=== PATIENT | female | born 1955 | race Caucasian/White ===

== ENCOUNTER 2018-11-24 07:21 | Day surgery (SDC) | payer BC ==
[2018-11-24] MEDS ORDERED: Ropivacaine 0.5% 5 MG/ML 30 ML SDV INJECT ONE (07:22)
[2018-11-24] MEDS ORDERED: Lidocaine 2% 5 ML SDV INJECT ONE (07:22)
[2018-11-24] MEDS ORDERED: Scopolamine 1.5 MG Transdermal Patch TRDERM ONE (07:30)
[2018-11-24] MEDS ORDERED: Gabapentin 300 MG Cap PO ONE (07:30)
[2018-11-24] MEDS ORDERED: Acetaminophen 500 MG Tab PO ONE (07:30)
[2018-11-24] MEDS ORDERED: Sodium Chloride 0.9% 10 ML Syringe FLUSH PRN (07:30)
[2018-11-24] MEDS ORDERED: Lactated Ringers 1,000 ML IV SCH (07:30)
[2018-11-24] MEDS ORDERED: Morphine PF 10 MG/10 ML SDV IV ONE (08:53)
[2018-11-24] MEDS ORDERED: Lactated Ringers 1,000 ML IV ONE (08:53)
[2018-11-24] MEDS ORDERED: Dexamethasone 4 MG/ML 5 ML MDV IVPUSH ONE (08:53)
[2018-11-24] MEDS ORDERED: Midazolam 1 MG/ML 2 ML SDV IV ONE (08:53)
[2018-11-24] MEDS ORDERED: EPINEPHrine 1 MG/ML SDV IV ONE (08:53)
[2018-11-24] MEDS ORDERED: fentaNYL 100 MCG/2 ML SDV IV ONE (08:53)
[2018-11-24] MEDS ORDERED: Ondansetron 4 MG/2 ML SDV IVPUSH ONE (08:53)
[2018-11-24] MEDS ORDERED: HYDROmorphone 2 MG/ML SDV IV ONE (08:53)
[2018-11-24] MEDS ORDERED: Propofol 200 MG/20 ML SDV IV ONE (08:53)
[2018-11-24] MEDS ORDERED: diphenhydrAMINE 50 MG/ML SDV IVPUSH ONE (08:53)
[2018-11-24] MEDS ORDERED: Ropivacaine 49.25 ML, Ketorolac 30 MG, EPINEPHrine 0.5 MG, cloNIDine 80 MCG, Sodium Chl... INJECT SCH ×5 (09:00)
[2018-11-24] MEDS ORDERED: Tranexamic Acid 3,000 MG, Sodium Chloride 0.9% 100 ML IRR ONE ×2 (10:00)
[2018-11-24] MEDS ORDERED: Nalbuphine 10 MG/1 ML Vial IVPUSH PRN (10:07)
[2018-11-24] MEDS ORDERED: diphenhydrAMINE 50 MG/ML SDV IV PRN (10:07)
[2018-11-24] MEDS ORDERED: Ondansetron 4 MG/2 ML SDV IVPUSH PRN ×2 (10:07→10:53)
[2018-11-24] MEDS ORDERED: hydrOXYzine HCl 50 MG/ML SDV IM PRN (10:07)
[2018-11-24] MEDS ORDERED: Naloxone 0.4 MG/ML SDV IVPUSH PRN ×2 (10:07→10:53)
[2018-11-24] MEDS ORDERED: Morphine 2 MG/ML Syringe IVPUSH PRN ×2 (10:07→10:53)
[2018-11-24] MEDS ORDERED: Bisacodyl 5 MG Tab PO PRN (10:53)
[2018-11-24] MEDS ORDERED: diphenhydrAMINE 50 MG/ML SDV IVPUSH PRN (10:53)
[2018-11-24] MEDS ORDERED: Docusate Sodium 100 MG Cap PO PRN (10:53)
[2018-11-24] MEDS ORDERED: Magnesium Hydroxide 400 MG/5 ML Susp 30 ML Cup PO PRN (10:53)
[2018-11-24] MEDS ORDERED: Zolpidem 5 MG Tab PO PRN (10:53)
[2018-11-24] MEDS ORDERED: traMADol 50 MG Tab PO PRN (10:53)
[2018-11-24] MEDS ORDERED: Sennosides 8.6 MG Tab PO PRN (10:53)
--- NOTE | 2018-11-24 11:32 | OR ---
DATE OF OPERATION: 11/24/2018 SURGEON: Cuco Sy DO PREOPERATIVE DIAGNOSIS: Left knee primary osteoarthritis. POSTOPERATIVE DIAGNOSIS: Left knee primary osteoarthritis. PROCEDURE: Left knee medial compartment arthroplasty. ANESTHESIA: Spinal plus conscious sedation. FLUID: Lactated Ringer solution. ESTIMATED BLOOD LOSS: 100 mL. COMPLICATIONS: None. SPECIMEN: None. DISCHARGE DISPOSITION: Stable to PACU. INSTRUMENTATION: DePuy Sigma unicondylar medial compartment knee, size 2 femur, size 2 tibial insert, and size 2, 11 mm polyethylene fixed-bearing insert. HISTORY AND INDICATION FOR THE PROCEDURE: The patient is well known to me. 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 Preoperative imaging confirmed the above- mentioned diagnosis. Risks and benefits of the procedure explained to the patient. Informed consent was obtained. Preoperative imaging confirmed the above-mentioned diagnosis. DETAILS OF PROCEDURE: The patient was seen preoperatively by myself and the Anesthesia staff in the preoperative holding area where the operative site was marked. She was brought to the operative suite by Anesthesia staff where spinal sedation was administered plus conscious sedation. Sterile Damon catheter was placed. All extremities were found to be well padded. A tourniquet was placed on the left thigh. The right lower extremity was placed into a stirrup. The left lower extremity was placed in approximately 15 degrees of flexion with a Gelfoam and a thigh reed. The left lower extremity was then prepped and draped in a sterile manner. Time-out was called identifying the correct patient, the correct procedure, the correct site, and antibiotics had been begun within appropriate period of time. The left lower extremity was exsanguinated. Tourniquet was raised to 300 mmHg for 38 minutes and let down after cementing. An incision was made just medial to the superior aspect of the patella down to the level of the tibial tubercle. Bleeding during the case was controlled with Bovie electrocautery. A medial parapatellar arthrotomy was then made. The infrapatellar fat pad was removed. Partial synovectomy was performed on the medial side. The anterior portion of the medial meniscus was removed. The medial proximal tibia was exposed with Bovie electrocautery. I then used an extramedullary tibial guide with approximately 0 to 2 degrees posterior slope, 2 mm stylus setting. This was pinned in place. I then made my vertical cut in line with the anterior superior iliac spine and then made my horizontal cut and then removed this using an osteotome and Bovie electrocautery, which took some time because of its attachments. This was a very thick cut that was due to the severe arthritis in the posterior portion where the stylus was. I sized with an 11, which had plenty of room both in flexion and extension. I then brought the knee out in extension, used a distal femoral cutting guide and pinned it in place and made my distal femoral cut. I then marked the midline in extension and flexion with my size 2 paddle and then used my size 2 distal femoral cutting block and pinned that in position and then made my 3 distal cuts and drilled the 2 lugs. After this had been accomplished, I removed those pieces of bone which I had set to remove and then placed a tibial base plate cutting guide. This was confirmed to be in good position using a bone hook on the posterior aspect and then feeling along the medial aspect of the tibia. This was held in place with a lamina composition worker. I then used a gouge to gouge for the keel and then drilled the lug. I then copiously irrigated with saline. I used tranexamic acid and then use an intra-articular injection, but did not use the full amount due to the patient's kidney status. We then copiously irrigated with saline and then I cemented in 20 degrees of flexion with a paddle rather than using the final poly after removing as much cement as I could. We then allowed the cement to set up after letting the tourniquet down. We then removed any extra cement and extra cartilage pieces and then applied my fixed-bearing tibial polyethylene. This provided excellent stability throughout range of motion. We then copiously irrigated again with saline. I did not use Betadine in this case because the patient did have a contrast oral and IV dye allergy. I then closed my parapatellar arthrotomy using two #5 Ethibond [id number] sutures superiorly and inferiorly to the pole of the patella and then with #1 Stratafix. There was a rent in the capsule medially. I oversewed this with a Stratafix, and for this reason, I applied a wound VAC, which was a 7-day wound VAC postoperatively and not for any other reason. I then closed the subcutaneous layer with #1 Stratafix followed by skin kami followed by the wound VAC and then applied an Reggie and the patient was then allowed to awaken from spinal and conscious sedation and then taken to the PACU in stable condition. /[id number] KWAME/MODL
--- NOTE | 2018-11-24 13:26 | PCM.OPNOTE ---
- General Post-Op/Procedure Note Date of Surgery/Procedure: 11/24/18 Operative Procedure(s): l medial pka Pre Op Diagnosis: left knee primary osteoarthritiss Post-Op Diagnosis: Same Anesthesia Technique: Combo Spinal/Epidural, Moderate Sedation Primary Surgeon: Cuco Sy Anesthesia Provider: Cristal Cheng EBL in mLs: 100 Complications: None Condition: Good Free Text/Narrative:: Intake & Output 11/23/18 11/24/18 11/24/18 22:59 06:59 14:59 Output Total 125 Balance -125
[2018-11-24] MEDS: Acetaminophen/oxyCODONE 325-5 MG Tab PO PRN ×2 (14:31→20:55)
--- NOTE | 2018-11-24 14:48 | CR ---
INDICATION: Followup medial hemiarthroplasty. LEFT KNEE: Frontal and lateral views were obtained portable 11/24/18 of the left knee and revealed interval medial hemiarthroplasty with components in good position and alignment and no evidence of a complicating process. There is some residual air postoperatively in the knee joint, as expected. Skin staple are again noted overlying. IMPRESSION: Satisfactory appearance postop medial hemiarthroplasty left knee. LILLIE
--- NOTE | 2018-11-24 14:50 | US ---
INDICATION: Guidance for left adductor lower thigh nerve block. ULTRASOUND, RFA GUIDANCE: Multiple ultrasonic images were obtained in the left adductor area prior to lower thigh nerve block, 11/24/18. [facility]
--- NOTE | 2018-11-24 15:46 | PCM.SN ---
- Free Text/Narrative Note: ANESTHESIA ACUTE PAIN SERVICE Date: 11/24/2018 Time: 1100 to 1122 Preoperative Dx: Left Knee Osteoarthritis with Pain Postoperative Rx: Left Partial Knee Arthroplasty The surgeon and the patient are requesting Postoperative Pain Control via Peripheral Regional Anesthesia. Procedure: Left Adductor Canal Nerve Block with Ultrasound [U/S] Guidance. Risks and benefits discussed with the patient including chronic insertion site pain and block failure or inadequate pain control. All questions answered and a consent was obtained. Monitors: NIBP, Heart Rates, SpO2 and Nasal Oxygen at 3L/M. See the nursing notes for vitals signs. Sedation: None The patient was awake throughout the whole procedure. Her left leg was placed in a frog-leg position. A preprocedure U/S scan was done locating the left Sartorius Muscle and Femoral Artery. This was very difficult and the anatomy was hard to define. She was moving her leg and stated that her pain was at a 3-4 / 10. I prepped the insertion site area with a Chlora-Prep swab and allowed it to dry. I infiltrated the needle insertion site with 2% Lidocaine plain 3 ml's. Under direct U/S visualization with moderate difficulty, I advanced a 20 Ga. 4 In. Stimuplex Ultra 360 Insulated Echogenic Needle and placed the tip next to the left Femoral Artery and below the left Sartorius Muscle. A total of 30 ml's of .5% Naropin in divided doses with negative aspiration for blood was injected under direct U/S visualization. The patient was without complaints and tolerated this well. Documentation: Please see the images taken in the PAC System in Radiology. Thank you for using this service. CANDI Moe CRNA
[2018-11-24] MEDS: ceFAZolin 2 GM in Premix Bag 1 BAG IV SCH (17:41)
[2018-11-24] MEDS ORDERED: ceFAZolin 1 GM Vial IVPUSH SCH (18:00)
[2018-11-24] MEDS ORDERED: Magnesium Oxide 400 MG Tab PO SCH (21:00)
[2018-11-25] MEDS: ceFAZolin 2 GM in Premix Bag 1 BAG IV SCH (01:39)
[2018-11-25] MEDS: Acetaminophen/oxyCODONE 325-5 MG Tab PO PRN ×2 (03:37→09:00)
[2018-11-25] MEDS ORDERED: Levothyroxine 100 MCG Tab PO SCH (06:00)
[2018-11-25] MEDS ORDERED: Pantoprazole 40 MG Tab.CR PO SCH (06:00)
[2018-11-25] MEDS ORDERED: Losartan 100 MG Tab PO SCH (09:00)
[2018-11-25] MEDS ORDERED: Hydrochlorothiazide 25 MG Tab PO SCH (09:00)
[2018-11-25] MEDS ORDERED: Allopurinol 300 MG Tab PO SCH (09:00)
[2018-11-25] MEDS ORDERED: Aspirin 325 MG Tab.EC PO SCH (09:00)
--- NOTE | 2018-11-25 09:43 | PCM.DCSUM1 ---
Discharge Summary - Hospital Course HPI Initial Comments: Left knee primary osteoarthritis Diagnosis: Stroke: No - Discharge Data Discharge Date: 11/25/18 Discharge Disposition: Home, Self-Care 01 Condition: Good - Patient Summary/Data Operative Procedure(s) Performed: l medial pka Complications: none Consults: Consultations 11/24/18 10:53 Respiratory Care Assess and Treatment [CONS] Routine Comment: Physician Instructions: Post-op Pneumonia Prevention 11/24/18 15:00 OT Evaluation and Treatment [CONS] Routine Please Evaluate and Treat. OT Reason for Consult: Strengthening This query below is only for informational purposes and is not editable. Admission Diagnosis/Problem: Arthroplasty of knee PT Evaluation and Treatment [CONS] Routine Please Evaluate and Treat. PT Reason for Consult: Strengthening This query below is only for informational purposes and is not editable. Admission Diagnosis/Problem: Arthroplasty of knee - Patient Instructions Diet: Usual Diet as Tolerated Activity: As Tolerated Driving: Do Not Drive Showering/Bathing: May Shower Showering/Bathing, Other: may shower and then replace with clean dressing Wound/Incision Care: Keep Operative Site/Wound Site Clean and Dry, Change Dressing Daily Notify Provider of: Fever, Increased Pain, Swelling and Redness, Drainage, Nausea and/or Vomiting - Discharge Plan *PRESCRIPTION DRUG MONITORING PROGRAM REVIEWED*: Yes *COPY OF PRESCRIPTION DRUG MONITORING REPORT IN PATIENT ARVIND: No Prescriptions/Med Rec: Acetaminophen/oxyCODONE [Percocet 325-5 MG] 1 tab PO QID PRN #56 tablet PRN Reason: Pain (Moderate 4-6) traMADol [Ultram] 100 mg PO Q6H PRN #56 tablet PRN Reason: Pain (Mild 1-3) Home Medications: Home Meds Acetaminophen [Tylenol Extra Strength] 1,500 mg PO BID 11/23/18 [History] Allopurinol [Zyloprim] 300 mg PO DAILY 11/23/18 [History] Fish Oil/Kinross-3 Fatty Acids [Fish Oil 1,000 MG] 1 cap PO DAILY 11/23/18 [ History] Ibuprofen 800 mg PO BID 11/23/18 [History] Losartan/Hydrochlorothiazide [Losartan-HCTZ 100-25 MG] 1 tab PO DAILY 11/23/18 [ History] Magnesium Oxide [Magnesium] 500 mg PO BEDTIME 11/23/18 [History] Levothyroxine 400 mcg PO 0600 11/24/18 [History] Turmeric Root Extract [Turmeric] 500 mg PO DAILY 11/24/18 [History] Acetaminophen/oxyCODONE [Percocet 325-5 MG] 1 tab PO QID PRN #56 tablet [Rx] traMADol [Ultram] 100 mg PO Q6H PRN #56 tablet 11/25/18 [Rx] Patient Handouts: Knee Pain, Adult, Venous Thromboembolism Prevention Referrals: Cuco Sy DO [Physician] - - Discharge Summary/Plan Comment DC Time >30 min.: No - General Info Date of Service: 11/25/18 Functional Status: Reports: Pain Controlled, Tolerating Diet, Ambulating, Urinating - Review of Systems General: Reports: No Symptoms HEENT: Reports: No Symptoms Pulmonary: Reports: No Symptoms Cardiovascular: Reports: No Symptoms Gastrointestinal: Reports: No Symptoms Genitourinary: Reports: No Symptoms Musculoskeletal: Reports: Leg Pain, Joint Pain, Joint Swelling Skin: Reports: No Symptoms Neurological: Reports: No Symptoms Psychiatric: Reports: No Symptoms - Patient Data Vitals - Most Recent: Last Vital Signs Temp 97.9 F 11/24/18 18:45 Pulse 74 11/24/18 18:45 Resp 14 11/24/18 18:45 BP 135/79 11/25/18 09:07 Pulse Ox 94 L 11/24/18 18:45 Weight - Most Recent: 307 lb I&O - Last 24 hours: Intake & Output 11/24/18 11/25/18 11/25/18 22:59 06:59 14:59 Intake Total 240 290 Output Total 500 700 Balance -260 -410 Lab Results - Last 24 hrs: Laboratory Results - last 24 hr 11/25/18 11/25/18 Range/Units 06:40 06:40 WBC 16.1 H (4.5-12.0) X10-3/uL RBC 3.73 (3.23-5.20) x10(6)uL Hgb 12.6 (11.5-15.5) g/dL Hct 35.5 D (30.0-51.3) % MCV 95.1 (80-96) fL MCH 33.6 (27.7-33.6) pg MCHC 35.4 (32.2-35.4) g/dL RDW 13.3 (11.5-15.5) % Plt Count 232 (125-369) X10(3)uL MPV 8.9 (7.4-10.4) fL Add Manual Diff Yes Neutrophils % (Manual) 80 (46-82) % Lymphocytes % (Manual) 16 (13-37) % Monocytes % (Manual) 4 (4-12) % Sodium 142 (135-145) mmol/L Potassium 4.1 (3.5-5.3) mmol/L Chloride 103 (100-110) mmol/L Carbon Dioxide 31 (21-32) mmol/L BUN 18 D (7-18) mg/dL Creatinine 1.1 H (0.55-1.02) mg/dL Est Cr Clr Drug Dosing 43.87 mL/min Estimated GFR (MDRD) 50 L (>60) BUN/Creatinine Ratio 16.4 (9-20) Glucose 154 H (80-116) mg/dL Calcium 8.5 L (8.6-10.2) mg/dL Total Bilirubin 0.3 (0.1-1.3) mg/dL AST 16 D (5-25) IU/L ALT 36 D (12-36) U/L Alkaline Phosphatase 75 (56-112) IU/L Total Protein 6.6 (6.0-8.0) g/dL Albumin 3.2 (3.2-4.6) g/dL Globulin 3.4 g/dL Albumin/Globulin Ratio 0.9 Med Orders - Current: Current Medications Allopurinol (Zyloprim) 300 mg PO DAILY [facility] Last Admin: 11/25/18 09:08 Dose: 300 mg Aspirin (Ecotrin) 325 mg PO DAILY [facility] Last Admin: 11/25/18 09:08 Dose: 325 mg Bisacodyl (Dulcolax) 10 mg PO DAILY PRN PRN Reason: Constipation Diphenhydramine HCl (Benadryl) 25 mg IV ONETIME PRN PRN Reason: Pruritus Diphenhydramine HCl (Benadryl) 25 mg IVPUSH Q4H PRN PRN Reason: Itching Docusate Sodium (Colace) 100 mg PO BID PRN PRN Reason: Constipation Hydrochlorothiazide (Hydrochlorothiazide) 25 mg PO DAILY [facility] Last Admin: 11/25/18 09:08 Dose: 25 mg Hydroxyzine HCl (Vistaril) 50 mg IM Q4H PRN PRN Reason: Nausea/Vomiting Lactated Ringer's (Ringers, Lactated) 1,000 mls @ 125 mls/hr IV ASDIRECTED [facility] Last Admin: 11/24/18 08:31 Dose: 125 mls/hr Levothyroxine Sodium (Synthroid) 400 mcg PO DAILY@0600 [facility] Last Admin: 11/25/18 06:10 Dose: 400 mcg Losartan Potassium (Cozaar) 100 mg PO DAILY [facility] Last Admin: 11/25/18 09:07 Dose: 100 mg Magnesium Hydroxide (Milk Of Magnesia) 30 ml PO BID PRN PRN Reason: Constipation Magnesium Oxide (Magnesium Oxide) 400 mg PO BEDTIME [facility] Last Admin: 11/24/18 20:25 Dose: 400 mg Morphine Sulfate (Morphine) 2 mg IVPUSH Q1H PRN PRN Reason: Pain Morphine Sulfate (Morphine) 2 mg IVPUSH Q2H PRN PRN Reason: Breakthrough Pain Nalbuphine HCl (Nubain) 10 mg IVPUSH Q1H PRN PRN Reason: Pruritus Naloxone HCl (Narcan) 0.1 mg IVPUSH ONETIME PRN PRN Reason: Oversedation Naloxone HCl (Narcan) 0.1 mg IVPUSH ONETIME PRN PRN Reason: Oversedation Ondansetron HCl (Zofran) 4 mg IVPUSH Q6H PRN PRN Reason: Nausea/Vomiting Ondansetron HCl (Zofran) 4 mg IVPUSH Q4H PRN PRN Reason: Nausea/Vomiting Oxycodone/Acetaminophen (Percocet 325-5 Mg) 2 tab PO Q4H PRN PRN Reason: Pain (moderate 4-6) Last Admin: 11/25/18 09:00 Dose: 2 tab Pantoprazole Sodium (Protonix) 40 mg PO 0600 [facility] Last Admin: 11/25/18 06:11 Dose: 40 mg Senna (Senna) 8.6 mg PO BID PRN PRN Reason: Constipation Sodium Chloride (Saline Flush) 10 ml FLUSH ASDIRECTED PRN PRN Reason: Keep Vein Open Tramadol HCl (Ultram) 100 mg PO Q6H PRN PRN Reason: Pain (mild 1-3) Zolpidem Tartrate (Ambien) 5 mg PO BEDTIME PRN PRN Reason: Sleep Discontinued Medications Acetaminophen (Tylenol Extra Strength) 1,000 mg PO ONETIME ONE Stop: 11/24/18 07:31 Last Admin: 11/24/18 07:51 Dose: 1,000 mg Ropivacaine 49.25 ml/Ketorolac Tromethamine 30 mg/Epinephrine HCl 0.5 mg/ Clonidine HCl 80 mcg/ Sodium Chloride 48.45 ml 0 ml INJECT ASDIRECTED [facility] Last Admin: 11/24/18 10:02 Dose: 100 syringe Tranexamic Acid 3,000 mg/ (Sodium Chloride 100 ml) 0 mg IRR ONETIME ONE Stop: 11/24/18 10:01 Last Admin: 11/24/18 10:00 Dose: 3,000 irr Gabapentin (Neurontin) 300 mg PO ONETIME ONE Stop: 11/24/18 07:31 Last Admin: 11/24/18 07:52 Dose: 300 mg Cefazolin Sodium 3 gm/ Sodium (Chloride) 100 mls @ 200 mls/hr IV ONETIME ONE Stop: 11/24/18 09:29 Last Admin: 11/24/18 08:49 Dose: 200 mls/hr Cefazolin Sodium/Dextrose 2 gm (/ Premix) 50 mls @ 100 mls/hr IV Q8H [facility] Stop: 11/25/18 02:29 Last Admin: 11/25/18 01:39 Dose: 100 mls/hr Scopolamine (Transderm-Scop) 1.5 mg TRDERM ONETIME ONE Stop: 11/24/18 07:31 Last Admin: 11/24/18 07:51 Dose: 1.5 mg - Exam General: Reports: Alert, Oriented, Cooperative, No Acute Distress HEENT: Reports: Pupils Equal, Pupils Reactive, EOMI, Mucous Membr. Moist/[place] Neck: Reports: Supple, Trachea Midline Lungs: Reports: Clear to Auscultation, Normal Respiratory Effort Skin: Reports: Warm, Dry, Intact Wound/Incisions: Reports: Healing Well, Dressing Dry and Intact, Drainage Neurological: Reports: No New Focal Deficit Psy/Mental Status: Reports: Alert, Normal Affect, Normal Mood Physical Findings Comments:: excellent ROM. Ambulated >500'. Replaced cannister due to drainage. Send extra cannister home Discharge Operative/Procedures - Procedures Performed Operations: l medial pka
== END 2018-11-25 10:15 | disposition home or self-care (01) ==
LOC: FB.SDS 07:21 → FB.MS 11:45 → FB.SDS 11-25 10:15
PROVIDERS: ATTEND Orthopaedic Surgery
DX: M17.0 Bilateral primary osteoarthritis of knee (principal); I10 Essential (primary) hypertension; J45.909 Unspecified asthma, uncomplicated; E03.9 Hypothyroidism, unspecified; M10.9 Gout, unspecified; G89.18 Other acute postprocedural pain; E66.9 Obesity, unspecified; Z68.43 Body mass index [BMI] 50.0-59.9, adult; Z90.5 Acquired absence of kidney; Z91.048 Other nonmedicinal substance allergy status; Z79.82 Long term (current) use of aspirin; Z79.899 Other long term (current) drug therapy; Z91.040 Latex allergy status
CPT/HCPCS: 27446; 36415; 51702; 64447; 73560; 80053; 85025; 86850; 86900; 86901; 94150; 97161; 97165; A9270; J0171; J0690; J0735; J1100; J1170; J1200; J1885; J2001; J2250; J2270; J2405; J2704; J2795; J3010; J3490; J7030; J7050; J7120; C1776

== ENCOUNTER 2019-01-09 07:22 | Inpatient (IN) | payer BC ==
[~2019-01-09 07:22] MED LIST: Acetaminophen 500 MG Tab PO ONE; Gabapentin 300 MG Cap PO ONE; Lactated Ringers 1,000 ML IV SCH; Ropivacaine 49.25 ML, Ketorolac 30 MG, EPINEPHrine 0.5 MG, cloNIDine 80 MCG, Sodium Chl... INJECT SCH; Scopolamine 1.5 MG Transdermal Patch TOP ONE; Sodium Chloride 0.9% 10 ML Syringe FLUSH PRN; Tranexamic Acid 3,000 MG, Sodium Chloride 0.9% 100 ML IRR SCH
[2019-01-09] MEDS: Sodium Chloride 0.9% 10 ML Syringe FLUSH PRN (08:07)
[2019-01-09] MEDS ORDERED: Ropivacaine 49.25 ML, EPINEPHrine 0.5 MG, cloNIDine 80 MCG, Sodium Chloride 0.9% 49.45 ML INJECT SCH ×4 (09:00)
[2019-01-09] MEDS ORDERED: Tranexamic Acid 3,000 MG, Sodium Chloride 0.9% 100 ML IRR SCH ×2 (09:00)
[2019-01-09] MEDS ORDERED: Ropivacaine 49.25 ML, Ketorolac 30 MG, EPINEPHrine 0.5 MG, cloNIDine 80 MCG, Sodium Chl... INJECT SCH ×5 (09:00)
[2019-01-09] MEDS ORDERED: Rocuronium 50 MG/5 ML Vial IV ONE (11:00)
[2019-01-09] MEDS ORDERED: Midazolam 1 MG/ML 2 ML SDV IV ONE (11:00)
[2019-01-09] MEDS ORDERED: Lactated Ringers 1,000 ML IV ONE (11:00)
[2019-01-09] MEDS ORDERED: Tetracaine 1% 10 MG/ML 2 ML SDV INJECT ONE (11:00)
[2019-01-09] MEDS ORDERED: Dexamethasone 4 MG/ML 5 ML MDV IVPUSH ONE (11:00)
[2019-01-09] MEDS ORDERED: Succinylcholine 200 MG/10 ML MDV IV ONE (11:00)
[2019-01-09] MEDS ORDERED: Morphine PF 10 MG/10 ML SDV IV ONE (11:00)
[2019-01-09] MEDS ORDERED: Albuterol 8 GM Inhaler INH ONE (11:00)
[2019-01-09] MEDS ORDERED: Ondansetron 4 MG/2 ML SDV IVPUSH ONE (11:00)
[2019-01-09] MEDS ORDERED: Labetalol 100 MG/20 ML MDV IV ONE (11:00)
[2019-01-09] MEDS ORDERED: Lidocaine 2% 100 MG/5 ML Syringe IVPUSH ONE (11:00)
[2019-01-09] MEDS ORDERED: diphenhydrAMINE 50 MG/ML SDV IVPUSH ONE (11:00)
[2019-01-09] MEDS ORDERED: Propofol 200 MG/20 ML SDV IV ONE (11:00)
[2019-01-09] MEDS ORDERED: fentaNYL 100 MCG/2 ML SDV IV ONE (11:00)
[2019-01-09] MEDS ORDERED: Vancomycin 1 GM SDV ONE (11:36)
[2019-01-09] MEDS ORDERED: Nalbuphine 10 MG/1 ML Vial IVPUSH PRN (13:33)
[2019-01-09] MEDS ORDERED: Naloxone 0.4 MG/ML SDV IVPUSH PRN ×2 (13:33→15:31)
[2019-01-09] MEDS ORDERED: diphenhydrAMINE 50 MG/ML SDV IV PRN (13:33)
[2019-01-09] MEDS ORDERED: Ondansetron 4 MG/2 ML SDV IVPUSH PRN ×2 (13:33→15:31)
[2019-01-09] MEDS ORDERED: Morphine 2 MG/ML Syringe IVPUSH PRN ×2 (13:33→15:31)
--- NOTE | 2019-01-09 14:05 | CR ---
INDICATION: Javier placement. LEFT KNEE: Frontal and lateral views of the left knee were obtained 01/09/19 and compared with 01/03/19, revealing interval removal of the medial hemiarthroplasty and placement of an intramedullary javier in the proximal metaphysis and proximal shaft of the tibia. LILLIE
[2019-01-09] MEDS ORDERED: Lidocaine 1% PF 2 ML SDV INJECT ONE (15:30)
[2019-01-09] MEDS ORDERED: Ropivacaine 0.5% 5 MG/ML 20 ML SDV INJECT ONE (15:30)
[2019-01-09] MEDS ORDERED: Docusate Sodium 100 MG Cap PO PRN (15:31)
[2019-01-09] MEDS ORDERED: Sennosides 8.6 MG Tab PO PRN (15:31)
[2019-01-09] MEDS ORDERED: Sodium Chloride 0.9% 10 ML Syringe FLUSH PRN (15:31)
[2019-01-09] MEDS ORDERED: Zolpidem 5 MG Tab PO PRN (15:31)
[2019-01-09] MEDS ORDERED: Magnesium Hydroxide 400 MG/5 ML Susp 30 ML Cup PO PRN (15:31)
[2019-01-09] MEDS ORDERED: Acetaminophen/oxyCODONE 325-5 MG Tab PO PRN (15:31)
[2019-01-09] MEDS ORDERED: diphenhydrAMINE 50 MG/ML SDV IVPUSH PRN (15:31)
[2019-01-09] MEDS ORDERED: Bisacodyl 5 MG Tab PO PRN (15:31)
--- NOTE | 2019-01-09 16:01 | OR ---
DATE OF OPERATION: 01/09/2019 SURGEON: Cuco Sy DO PREOPERATIVE DIAGNOSIS: Left knee medial arthroplasty periprosthetic fracture. POSTOPERATIVE DIAGNOSIS: Left knee medial arthroplasty periprosthetic fracture. PROCEDURE: Left knee revision total knee arthroplasty. RECORDS ADMINISTRATOR: Haily Cannon NP. Nurse practitioner, Haily Cannon NP, played an essential role in assisting in this case, helping to position the patient, retract structures as needed, as well as suturing and cutting sutures as indicated. Her presence improved patient's safety and decreased operative time. ANESTHESIA: Spinal and then general. FLUIDS: Lactated Ringer's solution. ESTIMATED BLOOD LOSS: 150 mL. COMPLICATIONS: None. SPECIMEN: None. DISCHARGE DISPOSITION: Stable to PACU. INSTRUMENTATION: Argelia rotating hinged revision arthroplasty system. HISTORY AND INDICATIONS FOR THE PROCEDURE: The patient is well known to me. Approximately 6 weeks ago, we performed a medial compartment arthroplasty on her left knee. She was having trouble. We did radiographs which confirmed the above-mentioned diagnosis. Risks and benefits of the procedure were explained to the patient and informed consent was obtained. DETAILS OF PROCEDURE: The patient was seen preoperatively by myself with the anesthesia staff in the preoperative holding area where the operative site was marked. She was brought to the operative suite, where spinal sedation was administered. This was later converted to general because of the length of the procedure. All extremities found to be well padded. A well-padded tourniquet was placed on the left thigh. The sterile Damon catheter was placed. The left lower extremity was then prepped and draped in a sterile manner. Time-out was called identifying the correct patient, correct procedure, the correct site, and the antibiotics had been put in appropriate period of time. The left lower extremity was then exsanguinated. Tourniquet was raised to 300 mmHg for 179 minutes and let down during cementing. I went through the former incision and then went more medially and extended both proximally and distally due to the revision pertaining to the procedure as well as the patient's body habitus. There was significant scar formation. A parapatellar arthrotomy was then made medially through the previous arthrotomy. The bleeding during the case was controlled with Bovie electrocautery as well as an Aquamantys 5.0 unit. Full synovectomy was performed. It was very difficult to lateralize the patella and done with great difficulty. The patella was then freehand cut with perpendicular cuts of the saw blade. A 31 was measured and three holes were made. I did not place the trial at that point in time. After that had been performed, we used the reciprocating saw and removed the medial distal femoral component and then removed the tibial base plate with the lateral anterior portion of the plateau where the fracture site was. We then reamed the distal femur 1 cm anterior to the notch and then subsequently reamed from an 8 to an 18 reamer to 80 mm. We then applied our distal cutting guide and made a 10 mm distal cut. We then focused on the tibia. I placed a C-cone upside-down defined generally where the best fit would be and determined the center point for the starting reamer. I then drilled down this and then used subsequent reamers from 8 to 15. I wanted to get to a 150 mm, but this was not possible. I was barely able to get to 80. I then placed my base plate with stem and then the cutting guide and then made a 4 mm cut. After pinning this in place, I did have to make a 2 mm, then drop it down again. We had difficulty with the stem placement and I had to go with a 10 mm stem rather than a 16. I did take intraoperative radiographs, which showed that there was a very narrow AP diameter of the distal canal which was why we could not extend our reamer. I then focused on my chamfer cuts for the distal femur. I went in line with the epicondylar axis and then pinned my chamfer block in place. I then made my chamfer cuts. We then placed our trial tibia and trial femur stem on and then placed the axle for the posterior hench. This appeared that the femur was say a little bit proud, but we were unable to get extension. At this point, we were at about 120 minutes on the tourniquet, so the decision was made to do another distal femoral cut, so I removed all of our components and then made another 4 mm distal femoral cut and then recut the chamfers. I had to re-ream again as well because our stem would not fit. After I re-reamed, I was able to place the stem back in good position, we had a 10 mm tibia trial and then this was able to get it into full extension. We then went up to a 13 mm poly trial. This provided good range of motion and stability. We then removed the components, copiously irrigated with saline and copiously irrigated with Betadine infused irrigation. We did our canal preps. I was then able to put a Biostop far distal enough in the tibia. I was able to place a Biostop for the femur. We then cemented our components in place starting with the tibia, then the femur, then the patella. I did this in two mixing batches. We then let down the tourniquet at 179 minutes. I did use the Aquamantys to take care of some minor bleeders. We let the cement set up and then removed any extra cement that was present. We then placed our final tibial axle bushings in the femur and then placed our axle and got it in line by rotating it with a screwdriver and then placed our buttress. This provided good range of motion as well as good stability. We then irrigated again with saline with Betadine infused irrigation. I removed any extra cement that was present. We then put our TXA in the joint to control little bit of bleeding. We also put in a periarticular injection and then I put half a gram of vancomycin in the joint. This was a powder form. We then closed the parapatellar arthrotomy with Ethibond and Stratafix and then a subcutaneous closure with Stratafix. I did apply another 0.5 g of vancomycin powder in the subcu area prior to staple placement. After kami were placed, I put on a Prevena wound VAC 20 cm as an incisional VAC to prevent any infection. The patient was then allowed to awaken from general anesthesia and taken to the PACU in stable condition. /[id number] BS/BASIML
[2019-01-09] MEDS: Lactated Ringers 1,000 ML IV SCH (16:13)
--- NOTE | 2019-01-09 17:17 | PCM.OPNOTE ---
- General Post-Op/Procedure Note Date of Surgery/Procedure: 01/09/19 Operative Procedure(s): revision left total knee arthroplasty Pre Op Diagnosis: periprosthetic fracture of left knee after medial compartment arthroplasty Post-Op Diagnosis: Same Anesthesia Technique: Combo Spinal/Epidural, General ET Tube Primary Surgeon: Cuco Sy Anesthesia Provider: Cristal Cheng Stretch Machine Operator: Haily Cannon EBL in mLs: 150 Drain/Tube Comments:: provena 20cm wound vac Complications: None Condition: Good
--- NOTE | 2019-01-09 17:22 | PCM.CONS ---
H&P History of Present Illness - General Date of Service: 01/09/19 Admit Problem/Dx: Admission Diagnosis/Problem Admission Diagnosis/Problem Knee joint operation Source of Information: Patient, Old Records History Limitations: Reports: No Limitations - History of Present Illness Initial Comments - Free Text/Narative: Consulted by Dr Sy for medical management s/p revision left total knee arthroplasty for periprosthetic fracture of left knee after medial compartment arthroplasty, POD#0. Patient has history of hypertension, gout, thyroid radiation now hypothyroid on Levothyroxine 400 mcg daily. 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 Creatinine was normal at her preoperative visit. LEFT KNEE Pain Score (Numeric/FACES): 8 - Related Data Allergies/Adverse Reactions: Allergies Allergy/AdvReac Type Severity Reaction Status Date / Time Iodinated Contrast- Oral and Allergy Vomiting Verified 01/09/19 07:42 IV Dye latex Allergy Shortness Verified 01/09/19 07:42 of Breath Home Medications: Home Meds Acetaminophen [Tylenol Extra Strength] 1,500 mg PO BID 11/23/18 [History] Allopurinol [Zyloprim] 300 mg PO DAILY 11/23/18 [History] Fish Oil/[place]-3 Fatty Acids [Fish Oil 1,000 MG] 1 cap PO DAILY 11/23/18 [ History] Ibuprofen 800 mg PO BID 11/23/18 [History] Losartan/Hydrochlorothiazide [Losartan-HCTZ 100-25 MG] 1 tab PO DAILY 11/23/18 [ History] Magnesium Oxide [Magnesium] 400 mg PO BEDTIME 11/23/18 [History] Levothyroxine 300 mcg PO 0600 11/24/18 [History] Turmeric Root Extract [Turmeric] 500 mg PO DAILY 11/24/18 [History] Acetaminophen/oxyCODONE [Percocet 325-5 MG] 1 tab PO QID PRN #56 tablet [Rx] Aspirin [Ecotrin EC] 325 mg PO DAILY #21 tab.ec 11/25/18 [Rx] traMADol [Ultram] 100 mg PO Q6H PRN #56 tablet 11/25/18 [Rx] Cholecalciferol (Vitamin D3) [Vitamin D3] 1,000 units PO DAILY 01/04/19 [History ] Rutin/Hesp/Bioflav/C/Herb#196 [Bioflex] 1 ea PO DAILY 01/04/19 [History] Past Medical History HEENT History: Reports: Impaired Vision Cardiovascular History: Reports: Hypertension Respiratory History: Reports: Bronchitis, Recurrent Gastrointestinal History: Reports: None Genitourinary History: Reports: None 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 Endocrine Surgical History: Reports: Other (See Below) Other Endocrine Surgeries/Procedures: HX OF NEPHRECTOMY Musculoskeletal Surgical History: Reports: Arthroscopic Knee, Carpal Tunnel, Joint Replacement, Other (See Below) Other Musculoskeletal Surgeries/Procedures:: KNEE SURGERY. LEFT PARTIAL KNEE REPLACEMENT 11/24/2018, revised 01/09/2019 Oncologic Surgical History: Reports: Other (See Below) Other Oncologic Surgeries/Procedures: HX OF RADIATION THERAPY Social & Family History - Family History Family Medical History: Noncontributory - Tobacco Use Smoking Status *Q: Never Smoker - Caffeine Use Caffeine Use: Reports: Coffee, Soda - Recreational Drug Use Recreational Drug Use: No H&P Review of Systems - Review of Systems: Review Of Systems: See Below General: Denies: Fever, Chills HEENT: Denies: Ear Pain, Eye Pain, Sore Throat Pulmonary: Denies: Shortness of Breath, Wheezing Cardiovascular: Denies: Chest Pain, Palpitations Gastrointestinal: Denies: Abdominal Pain, Black Stool, Bloody Stool, Constipation, Diarrhea, Nausea, Vomiting Genitourinary: Denies: Dysuria, Frequency, Hematuria Musculoskeletal: Reports: Joint Pain Skin: Reports: No Symptoms Psychiatric: Reports: No Symptoms Neurological: Reports: No Symptoms Hematologic/Lymphatic: Reports: No Symptoms Immunologic: Reports: No Symptoms Exam - Exam Exam: See Below - Vital Signs Vital Signs: Last Vital Signs Temp 36.9 C 01/09/19 15:05 Pulse 76 01/09/19 07:40 Resp 15 01/09/19 15:50 BP 150/78 H 01/09/19 15:50 Pulse Ox 96 01/09/19 15:50 Weight: 127.006 kg - Exam Quality Assessment: Supplemental Oxygen General: Alert, Oriented, Cooperative HEENT: PERRLA, Conjunctiva Clear, EACs Clear, EOMI, Hearing Intact, Mucosa Moist & [place], Nares Patent, Normal Nasal Septum, Posterior Pharynx Clear Neck: Supple, Trachea Midline Lungs: Clear to Auscultation, Normal Respiratory Effort Cardiovascular: Regular Rate, Regular Rhythm GI/Abdominal Exam: Normal Bowel Sounds, Soft, Non-Tender, No Distention Extremities: No Pedal Edema Peripheral Pulses: 2+: Dorsalis Pedis (L), Dorsalis Pedis (R) Skin: Warm, Dry, Intact, Other (wound vac in place on left knee) Neuro Extensive - Mental Status: Alert, Oriented x3, Normal Mood/Affect, Normal Cognition Neuro Extensive - Motor, Sensory, Reflexes: CN II-XII Intact - Patient Data Lab Results Last 24 hrs: Laboratory Results - last 24 hr 01/09/19 Range/Units 07:42 Blood Type A POSITIVE Gel Antibody Screen Negative Consult PN Assessment/Plan POD#: 0 Procedures: Procedures ANESTH KNEE JOINT SURGERY (11/24/18) ASSAY OF PROTEIN URINE (11/15/18) ASSAY OF URINE CREATININE (11/15/18) BLOOD TYPING SEROLOGIC ABO (01/03/19) BLOOD TYPING SEROLOGIC RH(D) (01/03/19) COMPLETE CBC W/AUTO DIFF WBC (01/03/19) COMPREHEN METABOLIC PANEL (01/03/19) CULTURE OTHR SPECIMN AEROBIC (10/18/18) INSERT TEMP BLADDER CATH (11/24/18) N BLOCK INJ FEM SINGLE (11/24/18) OT EVAL LOW COMPLEX 30 MIN (11/24/18) PT EVAL LOW COMPLEX 20 MIN (11/24/18) RBC ANTIBODY SCREEN (01/03/19) REVISION OF KNEE JOINT (11/24/18) ROUTINE VENIPUNCTURE (01/03/19) URINALYSIS AUTO W/SCOPE (11/15/18) VITAL CAPACITY TEST (11/24/18) X-RAY EXAM OF KNEE 1 OR 2 (01/03/19) (1) Status post revision of total replacement of left knee SNOMED Code(s): 626863927015482, 038671088775114 Code(s): Z96.652 - PRESENCE OF LEFT ARTIFICIAL KNEE JOINT Current Visit: Yes (2) Hypertension SNOMED Code(s): 76905123 Code(s): I10 - ESSENTIAL (PRIMARY) HYPERTENSION Current Visit: Yes Qualifiers: Hypertension type: essential hypertension Qualified Code(s): I10 - Essential (primary) hypertension (3) Hypothyroidism SNOMED Code(s): 15243522 Code(s): E03.9 - HYPOTHYROIDISM, UNSPECIFIED Current Visit: Yes Qualifiers: Hypothyroidism type: postablative Qualified Code(s): E89.0 - Postprocedural hypothyroidism Assessment:: Recent increase in her dose by PCP to Levothyroxine 400 mcg daily. (4) Gout SNOMED Code(s): 35939535 Code(s): M10.9 - GOUT, UNSPECIFIED Current Visit: Yes (5) Nocturnal leg cramps SNOMED Code(s): 942686905, 213518274197045 Code(s): G47.62 - SLEEP RELATED LEG CRAMPS Current Visit: Yes Problem List Initiated/Reviewed/Updated: Yes My Orders Last 24 Hours: My Active Orders 01/09/19 21:00 Magnesium Oxide [Magnesium] 400 mg PO BEDTIME 01/10/19 06:00 Levothyroxine 400 mcg PO 0600 01/10/19 09:00 Allopurinol [Zyloprim] 300 mg PO DAILY Losartan [Cozaar] 100 mg PO DAILY Plan: Consult for medical management of chronic medical conditions: 1. Restart Levothyroxine 400 mcg(recent dose increase 1 month ago). 2. Hold HCTZ, restart Losartan 100 mg. 3. Restart Allopurinol in am. 4. Already has CBC/metabolic profile ordered for morning, no additional orders added. 5. Restarted her scheduled Magnesium 400 mg at bedtime for leg cramps/sleep, utilize other constipation medications first before using milk of magnesia as she may get diarrhea from excess magnesium. Thank you Dr Sy for consultation on this pleasant lady. Requesting Provider: Nicolas Sy MD Date Consult Requested: 01/09/19 Reason for Consult: medical management Patient History Reviewed: Yes Admission H&P Reviewed: Yes
[2019-01-09] MEDS: ceFAZolin 2 GM in Premix Bag 1 BAG IV SCH (17:42)
[2019-01-09] MEDS: Acetaminophen/oxyCODONE 325-5 MG Tab PO SCH (20:28)
[2019-01-09] MEDS: Magnesium Oxide 400 MG Tab PO SCH (20:30)
[2019-01-10] MEDS: Acetaminophen/oxyCODONE 325-5 MG Tab PO SCH ×4 (02:20→20:07)
[2019-01-10] MEDS: ceFAZolin 2 GM in Premix Bag 1 BAG IV SCH ×3 (02:52→17:42)
[2019-01-10] MEDS: Lactated Ringers 1,000 ML IV SCH (06:42)
--- NOTE | 2019-01-10 08:49 | PCM.CONSN ---
- General Info Date of Service: 01/10/19 Subjective Update: Patient is doing well this morning. No shortness of breath, chest pain. Passing gas but no bowel movement yet. Has ang in and IV fluids still going per Dr Sy. No fevers or chills. No nausea or vomiting. - Patient Data Vitals - Most Recent: Last Vital Signs Temp 36.8 C 01/10/19 04:00 Pulse 88 01/10/19 04:00 Resp 18 01/10/19 04:00 BP 113/61 01/10/19 00:00 Pulse Ox 90 L 01/10/19 04:00 Weight - Most Recent: 127.006 kg I&O - Last 24 Hours: Intake & Output 01/09/19 01/10/19 01/10/19 22:59 06:59 14:59 Output Total 180 260 Balance -180 -260 Lab Results Last 24 Hours: Laboratory Results - last 24 hr 01/10/19 01/10/19 Range/Units 06:00 06:00 WBC 13.8 H (4.5-12.0) X10-3/uL RBC 3.46 (3.23-5.20) x10(6)uL Hgb 10.9 L D (11.5-15.5) g/dL Hct 31.9 D (30.0-51.3) % MCV 92.3 (80-96) fL MCH 31.4 (27.7-33.6) pg MCHC 34.0 (32.2-35.4) g/dL RDW 13.0 (11.5-15.5) % Plt Count 229 (125-369) X10(3)uL MPV 8.3 (7.4-10.4) fL Add Manual Diff Yes Neutrophils % (Manual) 83 H (46-82) % Band Neutrophils % 4 (0-6) % Lymphocytes % (Manual) 10 L (13-37) % Monocytes % (Manual) 3 L (4-12) % Sodium 138 (135-145) mmol/L Potassium 4.6 (3.5-5.3) mmol/L Chloride 104 (100-110) mmol/L Carbon Dioxide 27 (21-32) mmol/L BUN 18 (7-18) mg/dL Creatinine 1.0 (0.55-1.02) mg/dL Est Cr Clr Drug Dosing 47.63 mL/min Estimated GFR (MDRD) 56 L (>60) BUN/Creatinine Ratio 18.0 (9-20) Glucose 146 H (80-116) mg/dL Calcium 8.4 L (8.6-10.2) mg/dL Total Bilirubin 0.4 (0.1-1.3) mg/dL AST 46 H D (5-25) IU/L ALT 37 H D (12-36) U/L Alkaline Phosphatase 74 (56-112) IU/L Total Protein 6.1 (6.0-8.0) g/dL Albumin 2.9 L (3.2-4.6) g/dL Globulin 3.2 g/dL Albumin/Globulin Ratio 0.9 Med Orders - Current: Current Medications Allopurinol (Zyloprim) 300 mg PO DAILY [facility] Aspirin (Ecotrin) 325 mg PO DAILY [facility] Bisacodyl (Dulcolax) 10 mg PO DAILY PRN PRN Reason: Constipation Diphenhydramine HCl (Benadryl) 25 mg IV ONETIME PRN PRN Reason: Pruritus Diphenhydramine HCl (Benadryl) 25 mg IVPUSH Q4H PRN PRN Reason: Itching Docusate Sodium (Colace) 100 mg PO BID PRN PRN Reason: Constipation Lactated Ringer's (Ringers, Lactated) 1,000 mls @ 75 mls/hr IV ASDIRECTED [facility] Last Admin: 01/10/19 06:42 Dose: 75 mls/hr Cefazolin Sodium/Dextrose 2 gm (/ Premix) 50 mls @ 100 mls/hr IV Q8H [facility] Stop: 01/10/19 10:29 Last Admin: 01/10/19 02:52 Dose: 100 mls/hr Ketorolac Tromethamine (Toradol) 30 mg IVPUSH Q8H PRN PRN Reason: PAIN Levothyroxine Sodium (Levothyroxine) 400 mcg PO 0600 [facility] Losartan Potassium (Cozaar) 100 mg PO DAILY [facility] Magnesium Hydroxide (Milk Of Magnesia) 30 ml PO BID PRN PRN Reason: Constipation Magnesium Oxide (Magnesium Oxide) 400 mg PO BEDTIME [facility] Last Admin: 01/09/19 20:30 Dose: 400 mg Morphine Sulfate (Morphine) 2 mg IVPUSH Q1H PRN PRN Reason: Pain Last Admin: 01/09/19 16:35 Dose: 2 mg Morphine Sulfate (Morphine) 2 mg IVPUSH Q2H PRN PRN Reason: Breakthrough Pain Nalbuphine HCl (Nubain) 10 mg IVPUSH Q1H PRN PRN Reason: Pruritus Naloxone HCl (Narcan) 0.1 mg IVPUSH ONETIME PRN PRN Reason: Oversedation Ondansetron HCl (Zofran) 4 mg IVPUSH Q4H PRN PRN Reason: Nausea/Vomiting Oxycodone/Acetaminophen (Percocet 325-5 Mg) 2 tab PO Q6H [facility] Last Admin: 01/10/19 08:09 Dose: 2 tab Senna (Senna) 8.6 mg PO BID PRN PRN Reason: Constipation Sodium Chloride (Saline Flush) 10 ml FLUSH ASDIRECTED PRN PRN Reason: Keep Vein Open Last Admin: 01/09/19 08:07 Dose: 10 ml Sodium Chloride (Saline Flush) 10 ml FLUSH ASDIRECTED PRN PRN Reason: Keep Vein Open Tramadol HCl (Ultram) 100 mg PO Q6H PRN PRN Reason: Pain (mild 1-3) Zolpidem Tartrate (Ambien) 5 mg PO BEDTIME PRN PRN Reason: Sleep Discontinued Medications Acetaminophen (Tylenol Extra Strength) 1,000 mg PO ONETIME ONE Stop: 01/09/19 07:01 Last Admin: 01/09/19 08:12 Dose: 1,000 mg Ropivacaine 49.25 ml/Ketorolac Tromethamine 30 mg/Epinephrine HCl 0.5 mg/ Clonidine HCl 80 mcg/ Sodium Chloride 48.45 ml 0 ml INJECT ASDIRECTED [facility] Tranexamic Acid 3,000 mg/ (Sodium Chloride 100 ml) 0 mg IRR ASDIRECTED [facility] Last Admin: 01/09/19 11:32 Dose: 100 irr Ropivacaine 49.25 ml/Epinephrine HCl 0.5 mg/Clonidine HCl 80 mcg/ Sodium Chloride 49.45 ml 0 ml INJECT ASDIRECTED [facility] Last Admin: 01/09/19 11:31 Dose: 100 syringe Gabapentin (Neurontin) 300 mg PO ONETIME ONE Stop: 01/09/19 07:01 Last Admin: 01/09/19 08:12 Dose: 300 mg Lactated Ringer's (Ringers, Lactated) 1,000 mls @ 125 mls/hr IV ASDIRECTED [facility] Last Admin: 01/09/19 08:17 Dose: 125 mls/hr Cefazolin Sodium 3 gm/ Sodium (Chloride) 100 mls @ 200 mls/hr IV ONETIME ONE Stop: 01/09/19 09:29 Last Admin: 01/09/19 09:54 Dose: 200 mls/hr Scopolamine (Transderm-Scop) 1.5 mg TOP ONETIME ONE Stop: 01/09/19 07:01 Last Admin: 01/09/19 08:13 Dose: 1.5 mg Vancomycin HCl (Vancomycin) 1 gm .XX .STK-MED ONE Stop: 01/09/19 11:37 Last Admin: 01/09/19 11:36 Dose: 1 gm - Exam General: Alert, Oriented Lungs: Clear to Auscultation, Normal Respiratory Effort Cardiovascular: Regular Rate, Regular Rhythm GI/Abdominal Exam: Normal Bowel Sounds, Soft, Non-Tender, No Distention Extremities: Other (wound vac in place) Consult PN Assessment/Plan POD#: 1 Procedures: Procedures ANESTH KNEE JOINT SURGERY (11/24/18) ASSAY OF PROTEIN URINE (11/15/18) ASSAY OF URINE CREATININE (11/15/18) BLOOD TYPING SEROLOGIC ABO (01/03/19) BLOOD TYPING SEROLOGIC RH(D) (01/03/19) COMPLETE CBC W/AUTO DIFF WBC (01/03/19) COMPREHEN METABOLIC PANEL (01/03/19) CULTURE OTHR SPECIMN AEROBIC (10/18/18) INSERT TEMP BLADDER CATH (11/24/18) N BLOCK INJ FEM SINGLE (11/24/18) OT EVAL LOW COMPLEX 30 MIN (11/24/18) PT EVAL LOW COMPLEX 20 MIN (11/24/18) RBC ANTIBODY SCREEN (01/03/19) REVISION OF KNEE JOINT (11/24/18) ROUTINE VENIPUNCTURE (01/03/19) URINALYSIS AUTO W/SCOPE (11/15/18) VITAL CAPACITY TEST (11/24/18) X-RAY EXAM OF KNEE 1 OR 2 (01/03/19) (1) Status post revision of total replacement of left knee SNOMED Code(s): 523455684492606, 924231044457589 Code(s): Z96.652 - PRESENCE OF LEFT ARTIFICIAL KNEE JOINT Current Visit: Yes (2) Hypertension SNOMED Code(s): 47440753 Code(s): I10 - ESSENTIAL (PRIMARY) HYPERTENSION Current Visit: Yes Qualifiers: Hypertension type: essential hypertension Qualified Code(s): I10 - Essential (primary) hypertension (3) Hypothyroidism SNOMED Code(s): 82616187 Code(s): E03.9 - HYPOTHYROIDISM, UNSPECIFIED Current Visit: Yes Qualifiers: Hypothyroidism type: postablative Qualified Code(s): E89.0 - Postprocedural hypothyroidism (4) Gout SNOMED Code(s): 40338760 Code(s): M10.9 - GOUT, UNSPECIFIED Current Visit: Yes (5) Nocturnal leg cramps SNOMED Code(s): 669300912, 930472881183047 Code(s): G47.62 - SLEEP RELATED LEG CRAMPS Current Visit: Yes Problem List Initiated/Reviewed/Updated: Yes My Orders Last 24 Hours: My Active Orders 01/09/19 21:00 Magnesium Oxide 400 mg PO BEDTIME 01/10/19 06:00 Levothyroxine 400 mcg PO 0601/10/19 09:00 Allopurinol [Zyloprim] 300 mg PO DAILY Losartan [Cozaar] 100 mg PO DAILY Plan: 1. Once IV fluids are discontinued then would restart her HCTZ. Blood pressures are good this morning, continue to monitor and adjust as needed. 2. Continue magnesium at night.
--- NOTE | 2019-01-10 09:27 | PCM.PN ---
- General Info Date of Service: 01/10/19 Admission Dx/Problem (Free Text): periprosthetic fracture left knee medial arthroplasty Functional Status: Reports: Pain Controlled, Tolerating Diet - Review of Systems General: Reports: No Symptoms HEENT: Reports: No Symptoms Pulmonary: Reports: No Symptoms Cardiovascular: Reports: No Symptoms Gastrointestinal: Reports: No Symptoms Genitourinary: Reports: No Symptoms Musculoskeletal: Reports: No Symptoms Skin: Reports: No Symptoms Neurological: Reports: Numbness Psychiatric: Reports: No Symptoms - Patient Data Vitals - Most Recent: Last Vital Signs Temp 98.2 F 01/10/19 04:00 Pulse 88 01/10/19 04:00 Resp 18 01/10/19 04:00 BP 113/61 01/10/19 00:00 Pulse Ox 90 L 01/10/19 04:00 Weight - Most Recent: 280 lb I&O - Last 24 Hours: Intake & Output 01/09/19 01/10/19 01/10/19 22:59 06:59 14:59 Output Total 180 260 Balance -180 -260 Lab Results Last 24 Hours: Laboratory Results - last 24 hr 01/10/19 01/10/19 Range/Units 06:00 06:00 WBC 13.8 H (4.5-12.0) X10-3/uL RBC 3.46 (3.23-5.20) x10(6)uL Hgb 10.9 L D (11.5-15.5) g/dL Hct 31.9 D (30.0-51.3) % MCV 92.3 (80-96) fL MCH 31.4 (27.7-33.6) pg MCHC 34.0 (32.2-35.4) g/dL RDW 13.0 (11.5-15.5) % Plt Count 229 (125-369) X10(3)uL MPV 8.3 (7.4-10.4) fL Add Manual Diff Yes Neutrophils % (Manual) 83 H (46-82) % Band Neutrophils % 4 (0-6) % Lymphocytes % (Manual) 10 L (13-37) % Monocytes % (Manual) 3 L (4-12) % Sodium 138 (135-145) mmol/L Potassium 4.6 (3.5-5.3) mmol/L Chloride 104 (100-110) mmol/L Carbon Dioxide 27 (21-32) mmol/L BUN 18 (7-18) mg/dL Creatinine 1.0 (0.55-1.02) mg/dL Est Cr Clr Drug Dosing 47.63 mL/min Estimated GFR (MDRD) 56 L (>60) BUN/Creatinine Ratio 18.0 (9-20) Glucose 146 H (80-116) mg/dL Calcium 8.4 L (8.6-10.2) mg/dL Total Bilirubin 0.4 (0.1-1.3) mg/dL AST 46 H D (5-25) IU/L ALT 37 H D (12-36) U/L Alkaline Phosphatase 74 (56-112) IU/L Total Protein 6.1 (6.0-8.0) g/dL Albumin 2.9 L (3.2-4.6) g/dL Globulin 3.2 g/dL Albumin/Globulin Ratio 0.9 Med Orders - Current: Current Medications Allopurinol (Zyloprim) [address] [facility] Aspirin (Ecotrin) [address] [facility] Bisacodyl (Dulcolax) 10 mg PO DAILY PRN PRN Reason: Constipation Diphenhydramine HCl (Benadryl) 25 mg IV ONETIME PRN PRN Reason: Pruritus Diphenhydramine HCl (Benadryl) 25 mg IVPUSH Q4H PRN PRN Reason: Itching Docusate Sodium (Colace) 100 mg PO BID PRN PRN Reason: Constipation Lactated Ringer's (Ringers, Lactated) 1,000 mls @ 75 mls/hr IV ASDIRECTED [facility] Last Admin: 01/10/19 06:42 Dose: 75 mls/hr Cefazolin Sodium/Dextrose 2 gm (/ Premix) 50 mls @ 100 mls/hr IV Q8H [facility] Stop: 01/10/19 10:29 Last Admin: 01/10/19 02:52 Dose: 100 mls/hr Ketorolac Tromethamine (Toradol) 30 mg IVPUSH Q8H PRN PRN Reason: PAIN Levothyroxine Sodium (Levothyroxine) [address] [facility] Losartan Potassium (Cozaar) [address] [facility] Magnesium Hydroxide (Milk Of Magnesia) 30 ml PO BID PRN PRN Reason: Constipation Magnesium Oxide (Magnesium Oxide) 400 mg PO BEDTIME [facility] Last Admin: 01/09/19 20:30 Dose: 400 mg Morphine Sulfate (Morphine) 2 mg IVPUSH Q1H PRN PRN Reason: Pain Last Admin: 01/09/19 16:35 Dose: 2 mg Morphine Sulfate (Morphine) 2 mg IVPUSH Q2H PRN PRN Reason: Breakthrough Pain Nalbuphine HCl (Nubain) 10 mg IVPUSH Q1H PRN PRN Reason: Pruritus Naloxone HCl (Narcan) 0.1 mg IVPUSH ONETIME PRN PRN Reason: Oversedation Ondansetron HCl (Zofran) 4 mg IVPUSH Q4H PRN PRN Reason: Nausea/Vomiting Oxycodone/Acetaminophen (Percocet 325-5 Mg) [address] [facility] Last Admin: 01/10/19 08:09 Dose: 2 tab Senna (Senna) 8.6 mg PO BID PRN PRN Reason: Constipation Sodium Chloride (Saline Flush) 10 ml FLUSH ASDIRECTED PRN PRN Reason: Keep Vein Open Last Admin: 01/09/19 08:07 Dose: 10 ml Sodium Chloride (Saline Flush) 10 ml FLUSH ASDIRECTED PRN PRN Reason: Keep Vein Open Tramadol HCl (Ultram) 100 mg PO Q6H PRN PRN Reason: Pain (mild 1-3) Zolpidem Tartrate (Ambien) 5 mg PO BEDTIME PRN PRN Reason: Sleep Discontinued Medications Acetaminophen (Tylenol Extra Strength) 1,000 mg PO ONETIME ONE Stop: 01/09/19 07:01 Last Admin: 01/09/19 08:12 Dose: 1,000 mg Ropivacaine 49.25 ml/Ketorolac Tromethamine 30 mg/Epinephrine HCl 0.5 mg/ Clonidine HCl 80 mcg/ Sodium Chloride 48.45 ml [address] [facility] Tranexamic Acid 3,000 mg/ (Sodium Chloride 100 ml) [address] [facility] Last Admin: 01/09/19 11:32 Dose: 100 irr Ropivacaine 49.25 ml/Epinephrine HCl 0.5 mg/Clonidine HCl 80 mcg/ Sodium Chloride 49.45 ml [address] [facility] Last Admin: 01/09/19 11:31 Dose: 100 syringe Gabapentin (Neurontin) 300 mg PO ONETIME ONE Stop: 01/09/19 07:01 Last Admin: 01/09/19 08:12 Dose: 300 mg Lactated Ringer's (Ringers, Lactated) 1,000 mls @ 125 mls/hr IV ASDIRECTED [facility] Last Admin: 01/09/19 08:17 Dose: 125 mls/hr Cefazolin Sodium 3 gm/ Sodium (Chloride) 100 mls @ 200 mls/hr IV ONETIME ONE Stop: 01/09/19 09:29 Last Admin: 01/09/19 09:54 Dose: 200 mls/hr Scopolamine (Transderm-Scop) 1.5 mg TOP ONETIME ONE Stop: 01/09/19 07:01 Last Admin: 01/09/19 08:13 Dose: 1.5 mg Vancomycin HCl (Vancomycin) 1 gm .XX .STK-MED ONE Stop: 01/09/19 11:37 Last Admin: 01/09/19 11:36 Dose: 1 gm - Exam General: Alert, Oriented, Cooperative, No Acute Distress HEENT: Pupils Equal, Pupils Reactive, EOMI, Mucous Membr. Moist/[place] Neck: Supple, Trachea Midline Lungs: Normal Respiratory Effort GI/Abdominal Exam: No Distention Extremities: Joint Swelling Peripheral Pulses: 2+: Dorsalis Pedis (L), Dorsalis Pedis (R) Skin: Warm, Intact Wound/Incisions: Healing Well, Drainage Neurological: No New Focal Deficit Psy/Mental Status: Alert, Normal Affect, Normal Mood (wound vac switched last evening then back to temporary vac after drainage decreased, numbness in foot with full ankle and foot rom most likely due to adductor block) - Problem List & Annotations (1) Periprosthetic fracture around prosthetic knee SNOMED Code(s): 89741398 Code(s): M97.8XXA - PERIPROSTH FRACTURE AROUND OTHER INTERNAL PROSTH JOINT, INIT; Z96.659 - PRESENCE OF UNSPECIFIED ARTIFICIAL KNEE JOINT Status: Acute Current Visit: Yes Qualifiers: Encounter type: subsequent encounter Laterality: left Qualified Code(s): M97.12XD - Periprosthetic fracture around internal prosthetic left knee joint, subsequent encounter; T84.043D - Periprosthetic fracture around internal prosthetic left knee joint, subsequent encounter (2) Status post revision of total replacement of left knee SNOMED Code(s): 246707569814183, 646328851119912 Code(s): Z96.652 - PRESENCE OF LEFT ARTIFICIAL KNEE JOINT Status: Acute Current Visit: Yes - Problem List Review Problem List Initiated/Reviewed/Updated: Yes - My Orders Last 24 Hours: My Active Orders 01/09/19 15:18 Knee 1V or 2V Lt [CR] Routine 01/10/19 Breakfast Regular Diet [DIET] - Plan Plan:: plan: OT/PT/DVT prophylaxis, pain control. monitor vac output, keep for ambulation
[2019-01-10] MEDS: Losartan 100 MG Tab PO SCH (09:29)
[2019-01-10] MEDS: Aspirin 325 MG Tab.EC PO SCH (09:30)
[2019-01-10] MEDS: Allopurinol 300 MG Tab PO SCH (09:30)
--- NOTE | 2019-01-10 09:31 | CR ---
INDICATION: Post knee replacement. LEFT KNEE: Three images of the left knee were obtained postsurgical for total knee arthroplasty and revealed the components to appear to be in good position and alignment, without evidence of a complicating process. Skin kami are noted anteriorly. A drain appears to be in position also. MTDD
--- NOTE | 2019-01-10 09:36 | US ---
INDICATION: Left AD nerve block. ULTRASOUND, RFA GUIDANCE: Multiple ultrasonic images were obtained, 01/09/19, for guidance during RFA - left AD nerve block. MTDD
[2019-01-10] MEDS: Ketorolac 30 MG/ML SDV IVPUSH PRN (11:28)
[2019-01-10] MEDS: Sodium Chloride 0.9% 10 ML Syringe FLUSH PRN (17:37)
[2019-01-10] MEDS: Dexamethasone 4 MG/ML 5 ML MDV IVPUSH SCH (17:37)
[2019-01-10] MEDS: traMADol 50 MG Tab PO PRN (17:38)
[2019-01-10] MEDS ORDERED: Sodium Chloride 0.9% 250 ML IV SCH (17:40)
[2019-01-10] MEDS: Magnesium Oxide 400 MG Tab PO SCH (20:08)
[2019-01-11] MEDS: Dexamethasone 4 MG/ML 5 ML MDV IVPUSH SCH ×2 (01:28→08:31)
[2019-01-11] MEDS: ceFAZolin 2 GM in Premix Bag 1 BAG IV SCH ×2 (01:28→10:07)
[2019-01-11] MEDS: Acetaminophen/oxyCODONE 325-5 MG Tab PO SCH ×4 (02:03→19:52)
[2019-01-11] MEDS: traMADol 50 MG Tab PO PRN (05:00)
[2019-01-11] MEDS: Ketorolac 30 MG/ML SDV IVPUSH PRN (05:01)
[2019-01-11] MEDS: Losartan 100 MG Tab PO SCH (08:27)
[2019-01-11] MEDS: Sodium Chloride 0.9% 10 ML Syringe FLUSH PRN ×2 (08:31→10:52)
[2019-01-11] MEDS: Aspirin 325 MG Tab.EC PO SCH (08:35)
[2019-01-11] MEDS: Allopurinol 300 MG Tab PO SCH (08:35)
--- NOTE | 2019-01-11 08:50 | PCM.PN ---
- General Info Date of Service: 01/11/19 Admission Dx/Problem (Free Text): periprosthetic fracture left knee medial arthroplasty Functional Status: Reports: Pain Controlled, Tolerating Diet, Urinating - Review of Systems General: Reports: No Symptoms HEENT: Reports: No Symptoms Pulmonary: Reports: No Symptoms Cardiovascular: Reports: No Symptoms Gastrointestinal: Reports: No Symptoms Genitourinary: Reports: No Symptoms Musculoskeletal: Reports: Leg Pain, Joint Pain, Joint Swelling Skin: Reports: No Symptoms Neurological: Reports: Numbness, Paresthesia Psychiatric: Reports: No Symptoms - Patient Data Vitals - Most Recent: Last Vital Signs Temp 97.8 F 01/11/19 01:45 Pulse 79 01/11/19 01:45 Resp 18 01/11/19 01:45 BP 132/66 01/11/19 08:27 Pulse Ox 93 L 01/11/19 01:45 Weight - Most Recent: 280 lb I&O - Last 24 Hours: Intake & Output 01/10/19 01/11/19 01/11/19 22:59 06:59 14:59 Intake Total 50 60 Output Total 1000 Balance -950 60 Lab Results Last 24 Hours: Laboratory Results - last 24 hr 01/11/19 01/11/19 Range/Units 06:20 06:20 WBC 11.8 (4.5-12.0) X10-3/uL RBC 3.28 (3.23-5.20) x10(6)uL Hgb 10.1 L (11.5-15.5) g/dL Hct 30.4 (30.0-51.3) % MCV 92.6 (80-96) fL MCH 30.8 (27.7-33.6) pg MCHC 33.3 (32.2-35.4) g/dL RDW 13.2 (11.5-15.5) % Plt Count 204 (125-369) X10(3)uL MPV 8.8 (7.4-10.4) fL Add Manual Diff Yes Neutrophils % (Manual) 90 H (46-82) % Lymphocytes % (Manual) 9 L (13-37) % Monocytes % (Manual) 1 L (4-12) % Sodium 140 (135-145) mmol/L Potassium 4.5 (3.5-5.3) mmol/L Chloride 105 (100-110) mmol/L Carbon Dioxide 27 (21-32) mmol/L BUN 21 H (7-18) mg/dL Creatinine 1.0 (0.55-1.02) mg/dL Est Cr Clr Drug Dosing 47.63 mL/min Estimated GFR (MDRD) 56 L (>60) BUN/Creatinine Ratio 21.0 H (9-20) Glucose 177 H (80-116) mg/dL Calcium 8.5 L (8.6-10.2) mg/dL Total Bilirubin 0.4 (0.1-1.3) mg/dL AST 106 H D (5-25) IU/L ALT 42 H D (12-36) U/L Alkaline Phosphatase 77 (56-112) IU/L Total Protein 6.4 (6.0-8.0) g/dL Albumin 3.0 L (3.2-4.6) g/dL Globulin 3.4 g/dL Albumin/Globulin Ratio 0.9 Med Orders - Current: Current Medications Allopurinol (Zyloprim) 300 mg PO DAILY [facility] Last Admin: 01/11/19 08:35 Dose: 300 mg Aspirin (Ecotrin) 325 mg PO DAILY [facility] Last Admin: 01/11/19 08:35 Dose: 325 mg Bisacodyl (Dulcolax) 10 mg PO DAILY PRN PRN Reason: Constipation Dexamethasone (Dexamethasone) 10 mg IVPUSH Q8H [facility] Stop: 01/11/19 09:01 Last Admin: 01/11/19 08:31 Dose: 10 mg Diphenhydramine HCl (Benadryl) 25 mg IVPUSH Q4H PRN PRN Reason: Itching Docusate Sodium (Colace) 100 mg PO BID PRN PRN Reason: Constipation Hydrochlorothiazide (Hydrochlorothiazide) 25 mg PO DAILY [facility] Cefazolin Sodium/Dextrose 2 gm (/ Premix) 50 mls @ 100 mls/hr IV Q8H [facility] Stop: 01/11/19 10:29 Last Admin: 01/11/19 01:28 Dose: 100 mls/hr Sodium Chloride (Normal Saline) 250 mls @ 100 mls/hr IV ASDIRECTED [facility] Last Admin: 01/10/19 17:42 Dose: 100 mls/hr Levothyroxine Sodium (Levothyroxine) 400 mcg PO 0600 [facility] Last Admin: 01/11/19 05:02 Dose: 400 mcg Losartan Potassium (Cozaar) 100 mg PO DAILY [facility] Last Admin: 01/11/19 08:27 Dose: 100 mg Magnesium Hydroxide (Milk Of Magnesia) 30 ml PO BID PRN PRN Reason: Constipation Magnesium Oxide (Magnesium Oxide) 400 mg PO BEDTIME [facility] Last Admin: 01/10/19 20:08 Dose: 400 mg Morphine Sulfate (Morphine) 2 mg IVPUSH Q2H PRN PRN Reason: Breakthrough Pain Naloxone HCl (Narcan) 0.1 mg IVPUSH ONETIME PRN PRN Reason: Oversedation Ondansetron HCl (Zofran) 4 mg IVPUSH Q4H PRN PRN Reason: Nausea/Vomiting Oxycodone/Acetaminophen (Percocet 325-5 Mg) 2 tab PO Q6H [facility] Last Admin: 01/11/19 08:22 Dose: 2 tab Senna (Senna) 8.6 mg PO BID PRN PRN Reason: Constipation Sodium Chloride (Saline Flush) 10 ml FLUSH ASDIRECTED PRN PRN Reason: Keep Vein Open Last Admin: 01/11/19 08:31 Dose: 10 ml Sodium Chloride (Saline Flush) 10 ml FLUSH ASDIRECTED PRN PRN Reason: Keep Vein Open Tramadol HCl (Ultram) 100 mg PO Q6H PRN PRN Reason: Pain (mild 1-3) Last Admin: 01/11/19 05:00 Dose: 100 mg Zolpidem Tartrate (Ambien) 5 mg PO BEDTIME PRN PRN Reason: Sleep Discontinued Medications Acetaminophen (Tylenol Extra Strength) 1,000 mg PO ONETIME ONE Stop: 01/09/19 07:01 Last Admin: 01/09/19 08:12 Dose: 1,000 mg Ropivacaine 49.25 ml/Ketorolac Tromethamine 30 mg/Epinephrine HCl 0.5 mg/ Clonidine HCl 80 mcg/ Sodium Chloride 48.45 ml 0 ml INJECT ASDIRECTED [facility] Tranexamic Acid 3,000 mg/ (Sodium Chloride 100 ml) 0 mg IRR ASDIRECTED [facility] Last Admin: 01/09/19 11:32 Dose: 100 irr Ropivacaine 49.25 ml/Epinephrine HCl 0.5 mg/Clonidine HCl 80 mcg/ Sodium Chloride 49.45 ml 0 ml INJECT ASDIRECTED [facility] Last Admin: 01/09/19 11:31 Dose: 100 syringe Diphenhydramine HCl (Benadryl) 25 mg IV ONETIME PRN PRN Reason: Pruritus Gabapentin (Neurontin) 300 mg PO ONETIME ONE Stop: 01/09/19 07:01 Last Admin: 01/09/19 08:12 Dose: 300 mg Lactated Ringer's (Ringers, Lactated) 1,000 mls @ 125 mls/hr IV ASDIRECTED [facility] Last Admin: 01/09/19 08:17 Dose: 125 mls/hr Cefazolin Sodium 3 gm/ Sodium (Chloride) 100 mls @ 200 mls/hr IV ONETIME ONE Stop: 01/09/19 09:29 Last Admin: 01/09/19 09:54 Dose: 200 mls/hr Lactated Ringer's (Ringers, Lactated) 1,000 mls @ 75 mls/hr IV ASDIRECTED [facility] Last Admin: 01/10/19 06:42 Dose: 75 mls/hr Cefazolin Sodium/Dextrose 2 gm (/ Premix) 50 mls @ 100 mls/hr IV Q8H [facility] Stop: 01/10/19 10:29 Last Admin: 01/10/19 09:32 Dose: 100 mls/hr Ketorolac Tromethamine (Toradol) 30 mg IVPUSH Q8H PRN PRN Reason: PAIN Last Admin: 01/11/19 05:01 Dose: 30 mg Morphine Sulfate (Morphine) 2 mg IVPUSH Q1H PRN PRN Reason: Pain Last Admin: 01/09/19 16:35 Dose: 2 mg Nalbuphine HCl (Nubain) 10 mg IVPUSH Q1H PRN PRN Reason: Pruritus Scopolamine (Transderm-Scop) 1.5 mg TOP ONETIME ONE Stop: 01/09/19 07:01 Last Admin: 01/09/19 08:13 Dose: 1.5 mg Vancomycin HCl (Vancomycin) 1 gm .XX .STK-MED ONE Stop: 01/09/19 11:37 Last Admin: 01/09/19 11:36 Dose: 1 gm - Exam General: Alert, Oriented, Cooperative, Mild Distress HEENT: Pupils Equal, Pupils Reactive, EOMI, Mucous Membr. Moist/[place] Neck: Supple, Trachea Midline Lungs: Normal Respiratory Effort GI/Abdominal Exam: No Distention Extremities: Joint Swelling, Leg Pain, Limited Range of Motion Peripheral Pulses: 2+: Dorsalis Pedis (L), Dorsalis Pedis (R) Skin: Warm, Dry, Intact Wound/Incisions: Healing Well, Drainage Neurological: No New Focal Deficit Psy/Mental Status: Alert, Normal Affect, Normal Mood (full ankle rom. callus like feeling on bottom of foot but better than last pm after slight knee flexion , dexamethasone) - Problem List & Annotations (1) Periprosthetic fracture around prosthetic knee SNOMED Code(s): 83974750 Code(s): M97.8XXA - PERIPROSTH FRACTURE AROUND OTHER INTERNAL PROSTH JOINT, INIT; Z96.659 - PRESENCE OF UNSPECIFIED ARTIFICIAL KNEE JOINT Status: Acute Current Visit: Yes Qualifiers: Encounter type: subsequent encounter Laterality: left Qualified Code(s): M97.12XD - Periprosthetic fracture around internal prosthetic left knee joint, subsequent encounter; T84.043D - Periprosthetic fracture around internal prosthetic left knee joint, subsequent encounter (2) Status post revision of total replacement of left knee SNOMED Code(s): 538149375893865, 971620480299054 Code(s): Z96.652 - PRESENCE OF LEFT ARTIFICIAL KNEE JOINT Status: Acute Current Visit: Yes - Problem List Review Problem List Initiated/Reviewed/Updated: Yes - My Orders Last 24 Hours: My Active Orders 01/10/19 17:00 dexAMETHasone [Dexamethasone] 10 mg IVPUSH Q8H 01/10/19 17:40 Sodium Chloride 0.9% [Normal Saline] 250 ml IV ASDIRECTED 01/10/19 18:00 ceFAZolin [Ancef] 2 gm Premix Bag 1 bag IV Q8H - Plan Plan:: plan: OT/PT/DVT prophylaxis, pain control. monitor vac output, keep for ambulation continue dexamethosone for 24 hours and abx. will start some gabapentin for burning sensation on medial distal aspect of incision
--- NOTE | 2019-01-11 08:52 | PCM.CONSN ---
- General Info Date of Service: 01/11/19 Subjective Update: Having some pain within wound vac, having more feeling in her foot this morning. No chest pain, shortness of breath. No abdominal pain. Passing gas but no bowel movement which patient reports is normal with her hypothyroidism, she goes every 3 days. No nausea or vomiting. - Patient Data Vitals - Most Recent: Last Vital Signs Temp 36.6 C 01/11/19 01:45 Pulse 79 01/11/19 01:45 Resp 18 01/11/19 01:45 BP 132/66 01/11/19 08:27 Pulse Ox 93 L 01/11/19 01:45 Weight - Most Recent: 127.006 kg I&O - Last 24 Hours: Intake & Output 01/10/19 01/11/19 01/11/19 22:59 06:59 14:59 Intake Total 50 60 Output Total 1000 Balance -950 60 Lab Results Last 24 Hours: Laboratory Results - last 24 hr 01/11/19 01/11/19 Range/Units 06:20 06:20 WBC 11.8 (4.5-12.0) X10-3/uL RBC 3.28 (3.23-5.20) x10(6)uL Hgb 10.1 L (11.5-15.5) g/dL Hct 30.4 (30.0-51.3) % MCV 92.6 (80-96) fL MCH 30.8 (27.7-33.6) pg MCHC 33.3 (32.2-35.4) g/dL RDW 13.2 (11.5-15.5) % Plt Count 204 (125-369) X10(3)uL MPV 8.8 (7.4-10.4) fL Add Manual Diff Yes Neutrophils % (Manual) 90 H (46-82) % Lymphocytes % (Manual) 9 L (13-37) % Monocytes % (Manual) 1 L (4-12) % Sodium 140 (135-145) mmol/L Potassium 4.5 (3.5-5.3) mmol/L Chloride 105 (100-110) mmol/L Carbon Dioxide 27 (21-32) mmol/L BUN 21 H (7-18) mg/dL Creatinine 1.0 (0.55-1.02) mg/dL Est Cr Clr Drug Dosing 47.63 mL/min Estimated GFR (MDRD) 56 L (>60) BUN/Creatinine Ratio 21.0 H (9-20) Glucose 177 H (80-116) mg/dL Calcium 8.5 L (8.6-10.2) mg/dL Total Bilirubin 0.4 (0.1-1.3) mg/dL AST 106 H D (5-25) IU/L ALT 42 H D (12-36) U/L Alkaline Phosphatase 77 (56-112) IU/L Total Protein 6.4 (6.0-8.0) g/dL Albumin 3.0 L (3.2-4.6) g/dL Globulin 3.4 g/dL Albumin/Globulin Ratio 0.9 Med Orders - Current: Current Medications Allopurinol (Zyloprim) 300 mg PO DAILY [facility] Last Admin: 01/11/19 08:35 Dose: 300 mg Aspirin (Ecotrin) 325 mg PO DAILY [facility] Last Admin: 01/11/19 08:35 Dose: 325 mg Bisacodyl (Dulcolax) 10 mg PO DAILY PRN PRN Reason: Constipation Dexamethasone (Dexamethasone) 10 mg IVPUSH Q8H [facility] Stop: 01/11/19 09:01 Last Admin: 01/11/19 08:31 Dose: 10 mg Diphenhydramine HCl (Benadryl) 25 mg IVPUSH Q4H PRN PRN Reason: Itching Docusate Sodium (Colace) 100 mg PO BID PRN PRN Reason: Constipation Hydrochlorothiazide (Hydrochlorothiazide) 25 mg PO DAILY [facility] Cefazolin Sodium/Dextrose 2 gm (/ Premix) 50 mls @ 100 mls/hr IV Q8H [facility] Stop: 01/11/19 10:29 Last Admin: 01/11/19 01:28 Dose: 100 mls/hr Sodium Chloride (Normal Saline) 250 mls @ 100 mls/hr IV ASDIRECTED [facility] Last Admin: 01/10/19 17:42 Dose: 100 mls/hr Levothyroxine Sodium (Levothyroxine) 400 mcg PO 0600 [facility] Last Admin: 01/11/19 05:02 Dose: 400 mcg Losartan Potassium (Cozaar) 100 mg PO DAILY [facility] Last Admin: 01/11/19 08:27 Dose: 100 mg Magnesium Hydroxide (Milk Of Magnesia) 30 ml PO BID PRN PRN Reason: Constipation Magnesium Oxide (Magnesium Oxide) 400 mg PO BEDTIME [facility] Last Admin: 01/10/19 20:08 Dose: 400 mg Morphine Sulfate (Morphine) 2 mg IVPUSH Q2H PRN PRN Reason: Breakthrough Pain Naloxone HCl (Narcan) 0.1 mg IVPUSH ONETIME PRN PRN Reason: Oversedation Ondansetron HCl (Zofran) 4 mg IVPUSH Q4H PRN PRN Reason: Nausea/Vomiting Oxycodone/Acetaminophen (Percocet 325-5 Mg) 2 tab PO Q6H [facility] Last Admin: 01/11/19 08:22 Dose: 2 tab Senna (Senna) 8.6 mg PO BID PRN PRN Reason: Constipation Sodium Chloride (Saline Flush) 10 ml FLUSH ASDIRECTED PRN PRN Reason: Keep Vein Open Last Admin: 01/11/19 08:31 Dose: 10 ml Sodium Chloride (Saline Flush) 10 ml FLUSH ASDIRECTED PRN PRN Reason: Keep Vein Open Tramadol HCl (Ultram) 100 mg PO Q6H PRN PRN Reason: Pain (mild 1-3) Last Admin: 01/11/19 05:00 Dose: 100 mg Zolpidem Tartrate (Ambien) 5 mg PO BEDTIME PRN PRN Reason: Sleep Discontinued Medications Acetaminophen (Tylenol Extra Strength) 1,000 mg PO ONETIME ONE Stop: 01/09/19 07:01 Last Admin: 01/09/19 08:12 Dose: 1,000 mg Ropivacaine 49.25 ml/Ketorolac Tromethamine 30 mg/Epinephrine HCl 0.5 mg/ Clonidine HCl 80 mcg/ Sodium Chloride 48.45 ml 0 ml INJECT ASDIRECTED [facility] Tranexamic Acid 3,000 mg/ (Sodium Chloride 100 ml) 0 mg IRR ASDIRECTED [facility] Last Admin: 01/09/19 11:32 Dose: 100 irr Ropivacaine 49.25 ml/Epinephrine HCl 0.5 mg/Clonidine HCl 80 mcg/ Sodium Chloride 49.45 ml 0 ml INJECT ASDIRECTED [facility] Last Admin: 01/09/19 11:31 Dose: 100 syringe Diphenhydramine HCl (Benadryl) 25 mg IV ONETIME PRN PRN Reason: Pruritus Gabapentin (Neurontin) 300 mg PO ONETIME ONE Stop: 01/09/19 07:01 Last Admin: 01/09/19 08:12 Dose: 300 mg Lactated Ringer's (Ringers, Lactated) 1,000 mls @ 125 mls/hr IV ASDIRECTED [facility] Last Admin: 01/09/19 08:17 Dose: 125 mls/hr Cefazolin Sodium 3 gm/ Sodium (Chloride) 100 mls @ 200 mls/hr IV ONETIME ONE Stop: 01/09/19 09:29 Last Admin: 01/09/19 09:54 Dose: 200 mls/hr Lactated Ringer's (Ringers, Lactated) 1,000 mls @ 75 mls/hr IV ASDIRECTED [facility] Last Admin: 01/10/19 06:42 Dose: 75 mls/hr Cefazolin Sodium/Dextrose 2 gm (/ Premix) 50 mls @ 100 mls/hr IV Q8H [facility] Stop: 01/10/19 10:29 Last Admin: 01/10/19 09:32 Dose: 100 mls/hr Ketorolac Tromethamine (Toradol) 30 mg IVPUSH Q8H PRN PRN Reason: PAIN Last Admin: 01/11/19 05:01 Dose: 30 mg Morphine Sulfate (Morphine) 2 mg IVPUSH Q1H PRN PRN Reason: Pain Last Admin: 01/09/19 16:35 Dose: 2 mg Nalbuphine HCl (Nubain) 10 mg IVPUSH Q1H PRN PRN Reason: Pruritus Scopolamine (Transderm-Scop) 1.5 mg TOP ONETIME ONE Stop: 01/09/19 07:01 Last Admin: 01/09/19 08:13 Dose: 1.5 mg Vancomycin HCl (Vancomycin) 1 gm .XX .STK-MED ONE Stop: 01/09/19 11:37 Last Admin: 01/09/19 11:36 Dose: 1 gm - Exam General: Alert, Oriented Lungs: Clear to Auscultation, Normal Respiratory Effort Cardiovascular: Regular Rate, Regular Rhythm GI/Abdominal Exam: Normal Bowel Sounds, Soft, Non-Tender Extremities: No Pedal Edema Skin: Warm, Dry, Other (wound vac in place) Consult PN Assessment/Plan POD#: 2 Procedures: Procedures ANESTH KNEE JOINT SURGERY (11/24/18) ASSAY OF PROTEIN URINE (11/15/18) ASSAY OF URINE CREATININE (11/15/18) BLOOD TYPING SEROLOGIC ABO (01/03/19) BLOOD TYPING SEROLOGIC RH(D) (01/03/19) COMPLETE CBC W/AUTO DIFF WBC (01/03/19) COMPREHEN METABOLIC PANEL (01/03/19) CULTURE OTHR SPECIMN AEROBIC (10/18/18) INSERT TEMP BLADDER CATH (11/24/18) N BLOCK INJ FEM SINGLE (11/24/18) OT EVAL LOW COMPLEX 30 MIN (11/24/18) PT EVAL LOW COMPLEX 20 MIN (11/24/18) RBC ANTIBODY SCREEN (01/03/19) REVISION OF KNEE JOINT (11/24/18) ROUTINE VENIPUNCTURE (01/03/19) URINALYSIS AUTO W/SCOPE (11/15/18) VITAL CAPACITY TEST (11/24/18) X-RAY EXAM OF KNEE 1 OR 2 (01/03/19) (1) Status post revision of total replacement of left knee SNOMED Code(s): 103908710508955, 112446278970215 Code(s): Z96.652 - PRESENCE OF LEFT ARTIFICIAL KNEE JOINT Current Visit: Yes (2) Hypertension SNOMED Code(s): 97015660 Code(s): I10 - ESSENTIAL (PRIMARY) HYPERTENSION Current Visit: Yes Qualifiers: Qualified Code(s): I10 - Essential (primary) hypertension (3) Hypothyroidism SNOMED Code(s): 03615378 Code(s): E03.9 - HYPOTHYROIDISM, UNSPECIFIED Current Visit: Yes Qualifiers: Qualified Code(s): E89.0 - Postprocedural hypothyroidism (4) Gout SNOMED Code(s): 31348133 Code(s): M10.9 - GOUT, UNSPECIFIED Current Visit: Yes (5) Nocturnal leg cramps SNOMED Code(s): 794615397, 893954872279816 Code(s): G47.62 - SLEEP RELATED LEG CRAMPS Current Visit: Yes Problem List Initiated/Reviewed/Updated: Yes My Orders Last 24 Hours: My Active Orders 01/10/19 09:00 Allopurinol [Zyloprim] 300 mg PO DAILY Losartan [Cozaar] 100 mg PO DAILY 01/11/19 09:00 hydroCHLOROthiazide 25 mg PO DAILY Plan: Blood pressure up this morning, IV fluids have been discontinued. Restart her HCTZ this morning. Continue to monitor for chronic constipation which may be compounded by her pain medications.
[2019-01-11] MEDS: Hydrochlorothiazide 25 MG Tab PO SCH (09:55)
[2019-01-11] MEDS: Gabapentin 300 MG Cap PO SCH ×3 (09:59→19:59)
--- NOTE | 2019-01-11 10:15 | PCM.SN ---
- Free Text/Narrative Note: [facility] Date: 01/09/2019 Time: 1530 to 1547 Preoperative Dx: Periprosthetic Fracture of the Left Knee S/p Left Knee Partial Arthroplasty Postoperative Rx: Left Total Knee Arthroplasty Revision Dr. Sy and the patient are requesting a postoperative peripheral nerve block for pain control. Procedure: Left Adductor Canal Nerve Block with Ultrasound [U/S] Guidance in PACU The risks and benefits were discussed with the patient and she wishes to proceed. She had this procedure done with her left knee partial arthroplasty and it worked extremely well for her. A consent was obtained. Time out done prior to the procedure. Monitors: NIBP, Heart Rate, SpO2 and nasal O2 at 3L/M [Please see nursing notes for vital signs]. Sedation: None She was awake and alert throughout this procedure. She was complaining that her pain was at a 7-8/10. She is supine with her left leg in a Frog-Leg position. A preprocedure scan was done with her left Femoral Artery and Sartorius Muscle identified under direct U/S visualization at 5-6 cm. The needle insertion site area was prepped X 1 with a Chlora-Prep swab and allowed to dry. Using aseptic technique, I infiltrated the needle insertion site with 4 ml's of 1% Lidocaine plain using a 30 Ga. 1.5 In needle. Under direct U/S visualization, I then inserted and advanced a 20 Ga. 4 In. Stimuplex Ultra 360 Echogenic Needle to a good position under the Sartorius Muscle and next to the Femoral Artery. This placement took 3 attempts. Under direct U/S visualization, a total of 30 ml's of .5% Naropin in divided doses [multiple negative aspirations for blood] was given without any patient complaints or complications. She tolerated this well and her pain was getting better after 5 minutes post block. Documentation: Please see the images taken in the PAC system. Thank You for using this service. CANDI Moe CRNA
[2019-01-11] MEDS: Magnesium Oxide 400 MG Tab PO SCH (19:59)
[2019-01-12] MEDS: Acetaminophen/oxyCODONE 325-5 MG Tab PO SCH ×2 (01:58→08:18)
[2019-01-12] MEDS: traMADol 50 MG Tab PO PRN ×2 (05:25→12:34)
[2019-01-12] MEDS: Gabapentin 300 MG Cap PO SCH (08:18)
[2019-01-12] MEDS: Losartan 100 MG Tab PO SCH (08:19)
[2019-01-12] MEDS: Aspirin 325 MG Tab.EC PO SCH (08:19)
[2019-01-12] MEDS: Hydrochlorothiazide 25 MG Tab PO SCH (08:19)
[2019-01-12] MEDS: Allopurinol 300 MG Tab PO SCH (08:19)
--- NOTE | 2019-01-12 08:24 | PCM.PN ---
- General Info Date of Service: 01/12/19 Subjective Update: Passing more gas but no bowel movement yet. Feels she may go today but would like something to help. Has had as needed medications for constipation but has not taken. No chest pain, nausea or vomiting. - Patient Data Vitals - Most Recent: Last Vital Signs Temp 36.3 C 01/12/19 02:10 Pulse 79 01/12/19 02:10 Resp 16 01/12/19 02:10 BP 116/84 01/12/19 08:19 Pulse Ox 95 01/12/19 02:10 Weight - Most Recent: 127.006 kg Lab Results Last 24 Hours: Laboratory Results - last 24 hr 01/12/19 01/12/19 Range/Units 06:20 06:20 WBC 12.9 H (4.5-12.0) X10-3/uL RBC 3.22 L (3.23-5.20) x10(6)uL Hgb 9.9 L (11.5-15.5) g/dL Hct 29.9 L (30.0-51.3) % MCV 92.8 (80-96) fL MCH 30.8 (27.7-33.6) pg MCHC 33.2 (32.2-35.4) g/dL RDW 13.6 (11.5-15.5) % Plt Count 218 (125-369) X10(3)uL MPV 8.8 (7.4-10.4) fL Neut % (Auto) 76.6 (46-82) % Lymph % (Auto) 16.0 (13-37) % [place] % (Auto) 6.9 (4-12) % Eos % (Auto) 0 L (1.0-5.0) % Baso % (Auto) 0 (0-2) % Neut # (Auto) 9.9 H (1.6-8.3) # Lymph # (Auto) 2.1 (0.6-5.0) # [place] # (Auto) 0.9 (0.0-1.3) # Eos # (Auto) 0.0 (0.0-0.8) # Baso # (Auto) 0.0 (0.0-0.2) # Sodium 140 (135-145) mmol/L Potassium 4.3 (3.5-5.3) mmol/L Chloride 104 (100-110) mmol/L Carbon Dioxide 30 (21-32) mmol/L BUN 21 H (7-18) mg/dL Creatinine 0.9 (0.55-1.02) mg/dL Est Cr Clr Drug Dosing 52.93 mL/min Estimated GFR (MDRD) > 60 (>60) BUN/Creatinine Ratio 23.3 H (9-20) Glucose 117 H (80-116) mg/dL Calcium 8.7 (8.6-10.2) mg/dL Total Bilirubin 0.3 (0.1-1.3) mg/dL AST 70 H D (5-25) IU/L ALT 41 H (12-36) U/L Alkaline Phosphatase 76 (56-112) IU/L Total Protein 6.5 (6.0-8.0) g/dL Albumin 2.8 L (3.2-4.6) g/dL Globulin 3.7 g/dL Albumin/Globulin Ratio 0.8 Med Orders - Current: Current Medications Allopurinol (Zyloprim) 300 mg PO DAILY [facility] Last Admin: 01/12/19 08:19 Dose: 300 mg Aspirin (Ecotrin) 325 mg PO DAILY [facility] Last Admin: 01/12/19 08:19 Dose: 325 mg Bisacodyl (Dulcolax) 10 mg PO DAILY PRN PRN Reason: Constipation Diphenhydramine HCl (Benadryl) 25 mg IVPUSH Q4H PRN PRN Reason: Itching Docusate Sodium (Colace) 100 mg PO BID PRN PRN Reason: Constipation Gabapentin (Neurontin) 300 mg PO TID [facility] Last Admin: 01/12/19 08:18 Dose: 300 mg Hydrochlorothiazide (Hydrochlorothiazide) 25 mg PO DAILY [facility] Last Admin: 01/12/19 08:19 Dose: 25 mg Sodium Chloride (Normal Saline) 250 mls @ 100 mls/hr IV ASDIRECTED [facility] Last Admin: 01/10/19 17:42 Dose: 100 mls/hr Levothyroxine Sodium (Levothyroxine) 400 mcg PO 0600 [facility] Last Admin: 01/12/19 05:24 Dose: 400 mcg Losartan Potassium (Cozaar) 100 mg PO DAILY [facility] Last Admin: 01/12/19 08:19 Dose: 100 mg Magnesium Hydroxide (Milk Of Magnesia) 30 ml PO BID PRN PRN Reason: Constipation Magnesium Oxide (Magnesium Oxide) 400 mg PO BEDTIME [facility] Last Admin: 01/11/19 19:59 Dose: 400 mg Morphine Sulfate (Morphine) 2 mg IVPUSH Q2H PRN PRN Reason: Breakthrough Pain Naloxone HCl (Narcan) 0.1 mg IVPUSH ONETIME PRN PRN Reason: Oversedation Ondansetron HCl (Zofran) 4 mg IVPUSH Q4H PRN PRN Reason: Nausea/Vomiting Oxycodone/Acetaminophen (Percocet 325-5 Mg) 2 tab PO Q6H [facility] Last Admin: 01/12/19 08:18 Dose: 2 tab Senna (Senna) 8.6 mg PO BID PRN PRN Reason: Constipation Sodium Chloride (Saline Flush) 10 ml FLUSH ASDIRECTED PRN PRN Reason: Keep Vein Open Last Admin: 01/11/19 10:52 Dose: 10 ml Sodium Chloride (Saline Flush) 10 ml FLUSH ASDIRECTED PRN PRN Reason: Keep Vein Open Tramadol HCl (Ultram) 100 mg PO Q6H PRN PRN Reason: Pain (mild 1-3) Last Admin: 01/12/19 05:25 Dose: 100 mg Zolpidem Tartrate (Ambien) 5 mg PO BEDTIME PRN PRN Reason: Sleep Discontinued Medications Acetaminophen (Tylenol Extra Strength) 1,000 mg PO ONETIME ONE Stop: 01/09/19 07:01 Last Admin: 01/09/19 08:12 Dose: 1,000 mg Ropivacaine 49.25 ml/Ketorolac Tromethamine 30 mg/Epinephrine HCl 0.5 mg/ Clonidine HCl 80 mcg/ Sodium Chloride 48.45 ml 0 ml INJECT ASDIRECTED [facility] Tranexamic Acid 3,000 mg/ (Sodium Chloride 100 ml) 0 mg IRR ASDIRECTED [facility] Last Admin: 01/09/19 11:32 Dose: 100 irr Ropivacaine 49.25 ml/Epinephrine HCl 0.5 mg/Clonidine HCl 80 mcg/ Sodium Chloride 49.45 ml 0 ml INJECT ASDIRECTED [facility] Last Admin: 01/09/19 11:31 Dose: 100 syringe Dexamethasone (Dexamethasone) 10 mg IVPUSH Q8H [facility] Stop: 01/11/19 09:01 Last Admin: 01/11/19 08:31 Dose: 10 mg Diphenhydramine HCl (Benadryl) 25 mg IV ONETIME PRN PRN Reason: Pruritus Gabapentin (Neurontin) 300 mg PO ONETIME ONE Stop: 01/09/19 07:01 Last Admin: 01/09/19 08:12 Dose: 300 mg Lactated Ringer's (Ringers, Lactated) 1,000 mls @ 125 mls/hr IV ASDIRECTED [facility] Last Admin: 01/09/19 08:17 Dose: 125 mls/hr Cefazolin Sodium 3 gm/ Sodium (Chloride) 100 mls @ 200 mls/hr IV ONETIME ONE Stop: 01/09/19 09:29 Last Admin: 01/09/19 09:54 Dose: 200 mls/hr Lactated Ringer's (Ringers, Lactated) 1,000 mls @ 75 mls/hr IV ASDIRECTED [facility] Last Admin: 01/10/19 06:42 Dose: 75 mls/hr Cefazolin Sodium/Dextrose 2 gm (/ Premix) 50 mls @ 100 mls/hr IV Q8H [facility] Stop: 01/10/19 10:29 Last Admin: 01/10/19 09:32 Dose: 100 mls/hr Cefazolin Sodium/Dextrose 2 gm (/ Premix) 50 mls @ 100 mls/hr IV Q8H [facility] Stop: 01/11/19 10:29 Last Admin: 01/11/19 10:07 Dose: 100 mls/hr Ketorolac Tromethamine (Toradol) 30 mg IVPUSH Q8H PRN PRN Reason: PAIN Last Admin: 01/11/19 05:01 Dose: 30 mg Morphine Sulfate (Morphine) 2 mg IVPUSH Q1H PRN PRN Reason: Pain Last Admin: 01/09/19 16:35 Dose: 2 mg Nalbuphine HCl (Nubain) 10 mg IVPUSH Q1H PRN PRN Reason: Pruritus Scopolamine (Transderm-Scop) 1.5 mg TOP ONETIME ONE Stop: 01/09/19 07:01 Last Admin: 01/09/19 08:13 Dose: 1.5 mg Vancomycin HCl (Vancomycin) 1 gm .XX .STK-MED ONE Stop: 01/09/19 11:37 Last Admin: 01/09/19 11:36 Dose: 1 gm - Exam General: Alert, Oriented Lungs: Clear to Auscultation, Normal Respiratory Effort Cardiovascular: Regular Rate, Regular Rhythm GI/Abdominal Exam: Normal Bowel Sounds, Soft, Non-Tender Extremities: Other (wound vac in place, minimal drainage) - Problem List & Annotations (1) Status post revision of total replacement of left knee SNOMED Code(s): 986292829613300, 518336266075651 Code(s): Z96.652 - PRESENCE OF LEFT ARTIFICIAL KNEE JOINT Status: Acute Current Visit: Yes (2) Hypertension SNOMED Code(s): 27808930 Code(s): I10 - ESSENTIAL (PRIMARY) HYPERTENSION Status: Acute Current Visit: Yes Qualifiers: Hypertension type: essential hypertension Qualified Code(s): I10 - Essential (primary) hypertension (3) Hypothyroidism SNOMED Code(s): 81384768 Code(s): E03.9 - HYPOTHYROIDISM, UNSPECIFIED Status: Acute Current Visit : Yes Qualifiers: Hypothyroidism type: postablative Qualified Code(s): E89.0 - Postprocedural hypothyroidism (4) Gout SNOMED Code(s): 67906772 Code(s): M10.9 - GOUT, UNSPECIFIED Status: Acute Current Visit: Yes (5) Nocturnal leg cramps SNOMED Code(s): 159041226, 902522895998749 Code(s): G47.62 - SLEEP RELATED LEG CRAMPS Status: Acute Current Visit: Yes - Problem List Review Problem List Initiated/Reviewed/Updated: Yes - My Orders Last 24 Hours: My Active Orders 01/11/19 09:00 hydroCHLOROthiazide 25 mg PO DAILY - Plan Plan:: plan: OT/PT/DVT prophylaxis, pain control. monitor vac output, keep for ambulation Change MiraLAX to scheduled to help with constipation. Checking with insurance to in regards to swing bed placement. Repeat CBC tomorrow and restart abx if needed.
[2019-01-12] MEDS ORDERED: Polyethylene Glycol 3350 Powder 17 GM Packet PO SCH (09:00)
--- NOTE | 2019-01-12 12:53 | PCM.DCSUM1 ---
Discharge Summary - Hospital Course HPI Initial Comments: S/p left knee revision by Dr Sy, initially had IV fluids were discontinued POD #2, had peripheral nerve block by anesthesia to help with pain. Had 3 doses of Ancef. Blood pressure started going up so HCTZ was restarted. She has been passing gas but no bowel movement to date. No fevers, chills, coughing or shortness of breath. No urinary symptoms. WBC has fluctuated since admission to the floor, will continue to monitor on swing bed side as she has no respiratory , urinary or wound signs/symptoms of infection. Diagnosis: Stroke: No - Discharge Data Discharge Date: 01/12/19 Discharge Disposition: DC/Tfer W/I Hosp To Swing 61 Condition: Fair - Discharge Diagnosis/Problem(s) (1) Status post revision of total replacement of left knee SNOMED Code(s): 552527173402387, 226471179455690 ICD Code: Z96.652 - PRESENCE OF LEFT ARTIFICIAL KNEE JOINT Status: Acute Current Visit: Yes (2) Hypertension SNOMED Code(s): 88290246 ICD Code: I10 - ESSENTIAL (PRIMARY) HYPERTENSION Status: Acute Current Visit: Yes Qualifiers: Hypertension type: essential hypertension Qualified Code(s): I10 - Essential (primary) hypertension (3) Hypothyroidism SNOMED Code(s): 35730137 ICD Code: E03.9 - HYPOTHYROIDISM, UNSPECIFIED Status: Acute Current Visit : Yes Qualifiers: Hypothyroidism type: postablative Qualified Code(s): E89.0 - Postprocedural hypothyroidism (4) Gout SNOMED Code(s): 83436508 ICD Code: M10.9 - GOUT, UNSPECIFIED Status: Acute Current Visit: Yes (5) Nocturnal leg cramps SNOMED Code(s): 224038202, 074892018267053 ICD Code: G47.62 - SLEEP RELATED LEG CRAMPS Status: Acute Current Visit: Yes (6) Difficulty in walking SNOMED Code(s): 467163646 ICD Code: R26.2 - DIFFICULTY IN WALKING, NOT ELSEWHERE CLASSIFIED Status: Acute Current Visit: Yes (7) Weakness SNOMED Code(s): 05807111 ICD Code: R53.1 - WEAKNESS Status: Acute Current Visit: Yes - Patient Summary/Data Operative Procedure(s) Performed: revision left total knee arthroplasty Consults: Consultations 07/15/19 15:00 OT Evaluation and Treatment [CONS] Routine Please Evaluate and Treat. OT Reason for Consult: Strengthening This query below is only for informational purposes and is not editable. Admission Diagnosis/Problem: Knee joint operation PT Evaluation and Treatment [CONS] Routine Please Evaluate and Treat. PT Reason for Consult: Strengthening This query below is only for informational purposes and is not editable. Admission Diagnosis/Problem: Knee joint operation 01/09/19 15:32 Consult to Physician [CONS] Routine Consulting Provider: Annemarie Hodges Call Completed to Consulting Physician: Yes Respiratory Care Assess and Treatment [CONS] Routine Comment: Physician Instructions: Post-op Pneumonia Prevention - Patient Instructions Diet: Regular Diet as Tolerated - Discharge Plan *PRESCRIPTION DRUG MONITORING PROGRAM REVIEWED*: Not Applicable *COPY OF PRESCRIPTION DRUG MONITORING REPORT IN PATIENT ARVIND: Not Applicable Home Medications: Home Meds Acetaminophen [Tylenol Extra Strength] 1,500 mg PO BID 11/23/18 [History] Allopurinol [Zyloprim] 300 mg PO DAILY 11/23/18 [History] Fish Oil/[place]-3 Fatty Acids [Fish Oil 1,000 MG] 1 cap PO DAILY 11/23/18 [ History] Ibuprofen 800 mg PO BID 11/23/18 [History] Losartan/Hydrochlorothiazide [Losartan-HCTZ 100-25 MG] 1 tab PO DAILY 11/23/18 [ History] Magnesium Oxide [Magnesium] 400 mg PO BEDTIME 11/23/18 [History] Levothyroxine 400 mcg PO 0600 11/24/18 [History] Turmeric Root Extract [Turmeric] 500 mg PO DAILY 11/24/18 [History] Acetaminophen/oxyCODONE [Percocet 325-5 MG] 1 tab PO QID PRN #56 tablet [Rx] Aspirin [Ecotrin EC] 325 mg PO DAILY #21 tab.ec 11/25/18 [Rx] traMADol [Ultram] 100 mg PO Q6H PRN #56 tablet 11/25/18 [Rx] Cholecalciferol (Vitamin D3) [Vitamin D3] 1,000 units PO DAILY 01/04/19 [History ] Rutin/Hesp/Bioflav/C/Herb#196 [Bioflex] 1 ea PO DAILY 01/04/19 [History] Patient Handouts: Venous Thromboembolism Prevention - Discharge Summary/Plan Comment DC Time >30 min.: No - Patient Data Vitals - Most Recent: Last Vital Signs Temp 36.4 C 01/12/19 07:50 Pulse 86 01/12/19 12:44 Resp 20 01/12/19 12:44 BP 119/59 L 01/12/19 12:44 Pulse Ox 98 01/12/19 12:44 Weight - Most Recent: 127.006 kg Lab Results - Last 24 hrs: Laboratory Results - last 24 hr 01/12/19 01/12/19 Range/Units 06:20 06:20 WBC 12.9 H (4.5-12.0) X10-3/uL RBC 3.22 L (3.23-5.20) x10(6)uL Hgb 9.9 L (11.5-15.5) g/dL Hct 29.9 L (30.0-51.3) % MCV 92.8 (80-96) fL MCH 30.8 (27.7-33.6) pg MCHC 33.2 (32.2-35.4) g/dL RDW 13.6 (11.5-15.5) % Plt Count 218 (125-369) X10(3)uL MPV 8.8 (7.4-10.4) fL Neut % (Auto) 76.6 (46-82) % Lymph % (Auto) 16.0 (13-37) % [place] % (Auto) 6.9 (4-12) % Eos % (Auto) 0 L (1.0-5.0) % Baso % (Auto) 0 (0-2) % Neut # (Auto) 9.9 H (1.6-8.3) # Lymph # (Auto) 2.1 (0.6-5.0) # [place] # (Auto) 0.9 (0.0-1.3) # Eos # (Auto) 0.0 (0.0-0.8) # Baso # (Auto) 0.0 (0.0-0.2) # Sodium 140 (135-145) mmol/L Potassium 4.3 (3.5-5.3) mmol/L Chloride 104 (100-110) mmol/L Carbon Dioxide 30 (21-32) mmol/L BUN 21 H (7-18) mg/dL Creatinine 0.9 (0.55-1.02) mg/dL Est Cr Clr Drug Dosing 52.93 mL/min Estimated GFR (MDRD) > 60 (>60) BUN/Creatinine Ratio 23.3 H (9-20) Glucose 117 H (80-116) mg/dL Calcium 8.7 (8.6-10.2) mg/dL Total Bilirubin 0.3 (0.1-1.3) mg/dL AST 70 H D (5-25) IU/L ALT 41 H (12-36) U/L Alkaline Phosphatase 76 (56-112) IU/L Total Protein 6.5 (6.0-8.0) g/dL Albumin 2.8 L (3.2-4.6) g/dL Globulin 3.7 g/dL Albumin/Globulin Ratio 0.8 Med Orders - Current: Current Medications Allopurinol (Zyloprim) 300 mg PO DAILY [facility] Last Admin: 01/12/19 08:19 Dose: 300 mg Aspirin (Ecotrin) 325 mg PO DAILY [facility] Last Admin: 01/12/19 08:19 Dose: 325 mg Bisacodyl (Dulcolax) 10 mg PO DAILY PRN PRN Reason: Constipation Diphenhydramine HCl (Benadryl) 25 mg IVPUSH Q4H PRN PRN Reason: Itching Docusate Sodium (Colace) 100 mg PO BID PRN PRN Reason: Constipation Gabapentin (Neurontin) 300 mg PO TID [facility] Last Admin: 01/12/19 08:18 Dose: 300 mg Hydrochlorothiazide (Hydrochlorothiazide) 25 mg PO DAILY [facility] Last Admin: 01/12/19 08:19 Dose: 25 mg Sodium Chloride (Normal Saline) 250 mls @ 100 mls/hr IV ASDIRECTED [facility] Last Admin: 01/10/19 17:42 Dose: 100 mls/hr Levothyroxine Sodium (Levothyroxine) 400 mcg PO 0600 [facility] Last Admin: 01/12/19 05:24 Dose: 400 mcg Losartan Potassium (Cozaar) 100 mg PO DAILY [facility] Last Admin: 01/12/19 08:19 Dose: 100 mg Magnesium Hydroxide (Milk Of Magnesia) 30 ml PO BID PRN PRN Reason: Constipation Magnesium Oxide (Magnesium Oxide) 400 mg PO BEDTIME [facility] Last Admin: 01/11/19 19:59 Dose: 400 mg Morphine Sulfate (Morphine) 2 mg IVPUSH Q2H PRN PRN Reason: Breakthrough Pain Naloxone HCl (Narcan) 0.1 mg IVPUSH ONETIME PRN PRN Reason: Oversedation Ondansetron HCl (Zofran) 4 mg IVPUSH Q4H PRN PRN Reason: Nausea/Vomiting Oxycodone/Acetaminophen (Percocet 325-5 Mg) 2 tab PO Q6H [facility] Last Admin: 01/12/19 08:18 Dose: 2 tab Polyethylene Glycol (Miralax) 17 gm PO DAILY [facility] Last Admin: 01/12/19 09:31 Dose: 17 gm Senna (Senna) 8.6 mg PO BID PRN PRN Reason: Constipation Sodium Chloride (Saline Flush) 10 ml FLUSH ASDIRECTED PRN PRN Reason: Keep Vein Open Last Admin: 01/11/19 10:52 Dose: 10 ml Sodium Chloride (Saline Flush) 10 ml FLUSH ASDIRECTED PRN PRN Reason: Keep Vein Open Tramadol HCl (Ultram) 100 mg PO Q6H PRN PRN Reason: Pain (mild 1-3) Last Admin: 01/12/19 12:34 Dose: 100 mg Zolpidem Tartrate (Ambien) 5 mg PO BEDTIME PRN PRN Reason: Sleep Discontinued Medications Acetaminophen (Tylenol Extra Strength) 1,000 mg PO ONETIME ONE Stop: 01/09/19 07:01 Last Admin: 01/09/19 08:12 Dose: 1,000 mg Ropivacaine 49.25 ml/Ketorolac Tromethamine 30 mg/Epinephrine HCl 0.5 mg/ Clonidine HCl 80 mcg/ Sodium Chloride 48.45 ml 0 ml INJECT ASDIRECTED [facility] Tranexamic Acid 3,000 mg/ (Sodium Chloride 100 ml) 0 mg IRR ASDIRECTED [facility] Last Admin: 01/09/19 11:32 Dose: 100 irr Ropivacaine 49.25 ml/Epinephrine HCl 0.5 mg/Clonidine HCl 80 mcg/ Sodium Chloride 49.45 ml 0 ml INJECT ASDIRECTED [facility] Last Admin: 01/09/19 11:31 Dose: 100 syringe Dexamethasone (Dexamethasone) 10 mg IVPUSH Q8H [facility] Stop: 01/11/19 09:01 Last Admin: 01/11/19 08:31 Dose: 10 mg Diphenhydramine HCl (Benadryl) 25 mg IV ONETIME PRN PRN Reason: Pruritus Gabapentin (Neurontin) 300 mg PO ONETIME ONE Stop: 01/09/19 07:01 Last Admin: 01/09/19 08:12 Dose: 300 mg Lactated Ringer's (Ringers, Lactated) 1,000 mls @ 125 mls/hr IV ASDIRECTED [facility] Last Admin: 01/09/19 08:17 Dose: 125 mls/hr Cefazolin Sodium 3 gm/ Sodium (Chloride) 100 mls @ 200 mls/hr IV ONETIME ONE Stop: 01/09/19 09:29 Last Admin: 01/09/19 09:54 Dose: 200 mls/hr Lactated Ringer's (Ringers, Lactated) 1,000 mls @ 75 mls/hr IV ASDIRECTED [facility] Last Admin: 01/10/19 06:42 Dose: 75 mls/hr Cefazolin Sodium/Dextrose 2 gm (/ Premix) 50 mls @ 100 mls/hr IV Q8H [facility] Stop: 01/10/19 10:29 Last Admin: 01/10/19 09:32 Dose: 100 mls/hr Cefazolin Sodium/Dextrose 2 gm (/ Premix) 50 mls @ 100 mls/hr IV Q8H [facility] Stop: 01/11/19 10:29 Last Admin: 01/11/19 10:07 Dose: 100 mls/hr Ketorolac Tromethamine (Toradol) 30 mg IVPUSH Q8H PRN PRN Reason: PAIN Last Admin: 01/11/19 05:01 Dose: 30 mg Morphine Sulfate (Morphine) 2 mg IVPUSH Q1H PRN PRN Reason: Pain Last Admin: 01/09/19 16:35 Dose: 2 mg Nalbuphine HCl (Nubain) 10 mg IVPUSH Q1H PRN PRN Reason: Pruritus Scopolamine (Transderm-Scop) 1.5 mg TOP ONETIME ONE Stop: 01/09/19 07:01 Last Admin: 01/09/19 08:13 Dose: 1.5 mg Vancomycin HCl (Vancomycin) 1 gm .XX .STK-MED ONE Stop: 01/09/19 11:37 Last Admin: 01/09/19 11:36 Dose: 1 gm
== END 2019-01-12 13:15 | disposition swing bed (61) | DRG 302 ==
LOC: FB.SDS 07:22 → FB.MS 15:32
PROVIDERS: ADMIT Orthopaedic Surgery; ATTEND Orthopaedic Surgery
PROC: 0SRD069 Replacement of Left Knee Joint with Oxidized Zirconium on Polyethylene Synthetic Substitute, Cemented, Open Approach (ICD-10-PCS; principal; 2019-01-09)
PROC: 0SPD0JZ Removal of Synthetic Substitute from Left Knee Joint, Open Approach (ICD-10-PCS; 2019-01-09)
PROC: 3E0T3BZ Introduction of Anesthetic Agent into Peripheral Nerves and Plexi, Percutaneous Approach (ICD-10-PCS; 2019-01-09)
DX: M97.12XA Periprosthetic fracture around internal prosthetic left knee joint, initial encounter (principal); Z97.8 Presence of other specified devices; Z98.890 Other specified postprocedural states; I10 Essential (primary) hypertension; E89.0 Postprocedural hypothyroidism; M10.9 Gout, unspecified; J45.909 Unspecified asthma, uncomplicated; Z92.3 Personal history of irradiation; E66.9 Obesity, unspecified; Z68.43 Body mass index [BMI] 50.0-59.9, adult; Z79.82 Long term (current) use of aspirin; G47.62 Sleep related leg cramps; Z91.041 Radiographic dye allergy status; Z91.040 Latex allergy status; Z90.5 Acquired absence of kidney; H54.7 Unspecified visual loss; Z96.652 Presence of left artificial knee joint
CPT/HCPCS: 36415; 73560-LT; 80053; 85025; 86850; 86900; 86901; 94150; 97110-GP; 97161-GP; 97166-GO; 97530-GO; 97535-GO; A9270-GY; C1713; C1776; J0171; J0330; J0690; J0735; J1100; J1200; J1885; J2001; J2250; J2270; J2405; J2704; J2795; J3010; J3370; J3490; J7030; J7050; J7120

== ENCOUNTER 2019-01-12 12:09 | Inpatient (IN) | payer BC ==
[2019-01-12] MEDS ORDERED: Docusate Sodium 100 MG Cap PO PRN (14:06)
[2019-01-12] MEDS ORDERED: diphenhydrAMINE 50 MG/ML SDV IVPUSH PRN (14:06)
[2019-01-12] MEDS ORDERED: Zolpidem 5 MG Tab PO PRN (14:06)
[2019-01-12] MEDS ORDERED: Sennosides 8.6 MG Tab PO PRN (14:06)
[2019-01-12] MEDS ORDERED: Bisacodyl 5 MG Tab PO PRN (14:06)
[2019-01-12] MEDS: Acetaminophen/oxyCODONE 325-5 MG Tab PO SCH ×2 (14:35→19:58)
[2019-01-12] MEDS: Gabapentin 300 MG Cap PO SCH ×2 (14:35→19:59)
--- NOTE | 2019-01-12 14:54 | PCM.HP ---
H&P History of Present Illness - General Date of Service: 01/12/19 Admit Problem/Dx: Admission Diagnosis/Problem Admission Diagnosis/Problem Knee joint operation Source of Information: Patient - History of Present Illness Initial Comments - Free Text/Narative: Patient is post operative day 3 after left total knee revision by Dr Sy(2018), she is admitted into swing bed for difficulty walking and continued weakness from surgery. She has no fevers, chills, shortness of breath, coughing. No chest or abdominal pain. No nausea, vomiting or diarrhea. She has been constipated, last BM was 5 days ago. She does feel like she may go today, reports that it is usual for her to go every 3 days at home due to her thyroid. Her knee and leg pain are improved and has not had to have IV fluids, antibiotics or pain medications. - Related Data Allergies/Adverse Reactions: Allergies Allergy/AdvReac Type Severity Reaction Status Date / Time Iodinated Contrast- Oral and Allergy Vomiting Verified 01/09/19 07:42 IV Dye latex Allergy Shortness Verified 01/09/19 07:42 of Breath Home Medications: Home Meds Acetaminophen [Tylenol Extra Strength] 1,500 mg PO BID 11/23/18 [History] Allopurinol [Zyloprim] 300 mg PO DAILY 11/23/18 [History] Fish Oil/[place]-3 Fatty Acids [Fish Oil 1,000 MG] 1 cap PO DAILY 11/23/18 [ History] Ibuprofen 800 mg PO BID 11/23/18 [History] Losartan/Hydrochlorothiazide [Losartan-HCTZ 100-25 MG] 1 tab PO DAILY 11/23/18 [ History] Magnesium Oxide [Magnesium] 400 mg PO BEDTIME 11/23/18 [History] Levothyroxine 400 mcg PO 0600 11/24/18 [History] Turmeric Root Extract [Turmeric] 500 mg PO DAILY 11/24/18 [History] Acetaminophen/oxyCODONE [Percocet 325-5 MG] 1 tab PO QID PRN #56 tablet [Rx] Aspirin [Ecotrin EC] 325 mg PO DAILY #21 tab.ec 11/25/18 [Rx] traMADol [Ultram] 100 mg PO Q6H PRN #56 tablet 11/25/18 [Rx] Cholecalciferol (Vitamin D3) [Vitamin D3] 1,000 units PO DAILY 01/04/19 [History ] Rutin/Hesp/Bioflav/C/Herb#196 [Bioflex] 1 ea PO DAILY 01/04/19 [History] Past Medical History HEENT History: Reports: Impaired Vision Cardiovascular History: Reports: Hypertension Respiratory History: Reports: Bronchitis, Recurrent Gastrointestinal History: Reports: None Genitourinary History: Reports: None 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/HEALTH EDUCATION History: Reports: Other OB/BYN History: I PARA I Musculoskeletal History: Reports: Arthritis, Gout, Other (See Below) Other Musculoskeletal History: BILATERAL KNEE PAIN Psychiatric History: Reports: None Endocrine/Metabolic History: Reports: Hypothyroidism Hematologic History: Reports: None Immunologic History: Reports: None Dermatologic History: Reports: None - Infectious Disease History Infectious Disease History: Reports: Chicken Pox, Measles, Mumps - Past Surgical History Head Surgeries/Procedures: Reports: None Female Surgical History: Reports: Section, Nephrectomy Other Female Surgeries/Procedures: 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 Endocrine Surgical History: Reports: Other (See Below) Other Endocrine Surgeries/Procedures: HX OF NEPHRECTOMY Neurological Surgical History: Reports: None Musculoskeletal Surgical History: Reports: Arthroscopic Knee, Carpal Tunnel, Joint Replacement, Knee Replacement, Other (See Below) Other Musculoskeletal Surgeries/Procedures:: KNEE SURGERY. LEFT PARTIAL KNEE REPLACEMENT 11/24/2018, revised 01/09/2019 Oncologic Surgical History: Reports: Other (See Below) Other Oncologic Surgeries/Procedures: HX OF RADIATION THERAPY Dermatological Surgical History: Reports: None Social & Family History - Family History Family Medical History: Noncontributory - Tobacco Use Smoking Status *Q: Never Smoker Second Hand Smoke Exposure: No - Caffeine Use Caffeine Use: Reports: Coffee, Soda - Recreational Drug Use Recreational Drug Use: No H&P Review of Systems - Review of Systems: Review Of Systems: See Below General: Denies: Fever, Chills Pulmonary: Denies: Shortness of Breath, Cough Cardiovascular: Denies: Chest Pain, Palpitations, Edema Gastrointestinal: Reports: Constipation. Denies: Abdominal Pain, Diarrhea, Nausea, Vomiting Genitourinary: Denies: Dysuria, Frequency, Hematuria Musculoskeletal: Reports: Leg Pain (controlled) Skin: Reports: No Symptoms Psychiatric: Reports: No Symptoms Neurological: Reports: No Symptoms Hematologic/Lymphatic: Reports: Anemia (secondary to surgery) Exam - Exam Exam: See Below - Vital Signs Vital Signs: Last Vital Signs Temp 36.4 C 01/12/19 14:45 Pulse 86 01/12/19 14:45 Resp 18 01/12/19 14:45 BP 119/59 L 01/12/19 14:45 Pulse Ox 98 01/12/19 14:45 Weight: 127.006 kg - Exam General: Alert, Oriented, Cooperative HEENT: Mucosa Moist & Norrie Lungs: Clear to Auscultation, Normal Respiratory Effort Cardiovascular: Regular Rate, Regular Rhythm GI/Abdominal Exam: Normal Bowel Sounds, Soft, Non-Tender, No Distention Extremities: Pedal Edema, Leg Pain, Other (wound vac in place) - Patient Data Lab Results Last 24 hrs: see discharge summary from acute status - Problem List (1) Status post revision of total replacement of left knee SNOMED Code(s): 772648028222218, 551067782045967 ICD Code: Z96.652 - PRESENCE OF LEFT ARTIFICIAL KNEE JOINT Status: Acute Current Visit: Yes Onset Date: ~01/09/19 (2) Difficulty in walking SNOMED Code(s): 359425502 ICD Code: R26.2 - DIFFICULTY IN WALKING, NOT ELSEWHERE CLASSIFIED Status: Acute Current Visit: Yes (3) Weakness SNOMED Code(s): 05725856 ICD Code: R53.1 - WEAKNESS Status: Acute Current Visit: Yes (4) Constipation SNOMED Code(s): 55000439 ICD Code: K59.00 - CONSTIPATION, UNSPECIFIED Status: Acute Current Visit : Yes (5) Acute blood loss as cause of postoperative anemia SNOMED Code(s): 81929771282591200 ICD Code: D62 - ACUTE POSTHEMORRHAGIC ANEMIA Status: Acute Current Visit : Yes (6) Hypertension SNOMED Code(s): 46307698 ICD Code: I10 - ESSENTIAL (PRIMARY) HYPERTENSION Status: Acute Current Visit: Yes Qualifiers: Hypertension type: essential hypertension (7) S/p nephrectomy SNOMED Code(s): 883792551, 816909105 ICD Code: Z90.5 - ACQUIRED ABSENCE OF KIDNEY Status: Acute Current Visit : Yes (8) Hypothyroidism SNOMED Code(s): 55117707 ICD Code: E03.9 - HYPOTHYROIDISM, UNSPECIFIED Status: Acute Current Visit : No Qualifiers: Hypothyroidism type: postablative Qualified Code(s): E89.0 - Postprocedural hypothyroidism (9) Nocturnal leg cramps SNOMED Code(s): 474084639, 895063097961722 ICD Code: G47.62 - SLEEP RELATED LEG CRAMPS Status: Acute Current Visit: No Problem List Initiated/Reviewed/Updated: Yes Orders Last 24hrs: Active Orders 24 hr Category Date Time Status Patient Status [ADT] Routine ADT 01/12/19 14:06 Active Patient Status [ADT] Routine ADT 01/12/19 14:06 Active Ambulate [RC] ASDIRECTED Care 01/12/19 14:06 Active Antiembolic Devices [RC] .Routine Care 01/12/19 14:06 Active Antiembolic Devices [RC] .Routine Care 01/12/19 14:06 Active Communication Order [RC] ASDIRECTED Care 01/12/19 14:06 Active Head of Bed Elevation [RC] CONTINUOUS Care 01/12/19 14:06 Active Insert Damon Catheter [Insert Urinary Catheter] [OM.PC] Care 01/12/19 14:06 Ordered Q24H May Shower [RC] ASDIRECTED Care 01/12/19 14:06 Active Neurovascular Check [RC] Q4HR Care 01/12/19 14:06 Active Notify Provider Consults [RC] ASDIRECTED Care 01/12/19 14:06 Active Pneumonia Education [RC] UPON Care 01/12/19 14:06 Active RT Incentive Spirometry [RC] Q1HWA Care 01/12/19 14:06 Active Up to Chair [RC] TIDMEALS Care 01/12/19 14:06 Active Urinary Catheter Assessment [RC] QSHIFT Care 01/12/19 14:06 Active VTE/DVT Education [RC] Click to Edit Care 01/12/19 14:06 Active VTE/DVT Education [RC] Click to Edit Care 01/12/19 14:06 Active Vital Signs [RC] PER UNIT ROUTINE Care 01/12/19 14:06 Active Wound Care [RC] Q12H Care 01/12/19 14:06 Active Consult to Physician [CONS] Routine Cons 01/12/19 14:06 Ordered OT Evaluation and Treatment [CONS] Routine Cons 01/12/19 14:06 Active PT Evaluation and Treatment [CONS] Routine Cons 01/12/19 14:06 Active Respiratory Care Assess and Treatment [CONS] Routine Cons 01/12/19 14:06 Active Regular Diet [DIET] Diet 01/12/19 Breakfast Active CBC WITH AUTO DIFF [HEME] DAILY Lab 01/13/19 05:15 Ordered CBC WITH AUTO DIFF [HEME] DAILY Lab 01/14/19 05:15 Ordered COMPREHENSIVE METABOLIC PN,CMP [CHEM] DAILY Lab 01/13/19 06:00 Ordered COMPREHENSIVE METABOLIC PN,CMP [CHEM] DAILY Lab 01/14/19 06:00 Ordered Acetaminophen/oxyCODONE [Percocet 325-5 MG] Med 01/12/19 14:00 Active 2 tab PO Q6H Allopurinol [Zyloprim] Med 01/13/19 09:00 Active 300 mg PO DAILY Aspirin [Ecotrin] Med 01/13/19 09:00 Active 325 mg PO DAILY Bisacodyl [Dulcolax] Med 01/12/19 14:06 Active 10 mg PO DAILY PRN Docusate Sodium [Colace] Med 01/12/19 14:06 Active 100 mg PO BID PRN Gabapentin [Neurontin] Med 01/12/19 14:00 Active 300 mg PO TID Levothyroxine Med 01/13/19 06:00 Active 400 mcg PO 0600 Losartan [Cozaar] Med 01/13/19 09:00 Active 100 mg PO DAILY Magnesium Hydroxide [Milk of Magnesia] Med 01/12/19 14:06 Active 30 ml PO BID PRN Magnesium Oxide Med 01/12/19 21:00 Active 400 mg PO BEDTIME Polyethylene Glycol 3350 [MiraLAX] Med 01/13/19 09:00 Active 17 gm PO DAILY Sennosides [Senna] Med 01/12/19 14:06 Active 8.6 mg PO BID PRN Zolpidem [Ambien] Med 01/12/19 14:06 Active 5 mg PO BEDTIME PRN diphenhydrAMINE [Benadryl] Med 01/12/19 14:06 Active 25 mg IVPUSH Q4H PRN hydroCHLOROthiazide Med 01/13/19 09:00 Active 25 mg PO DAILY traMADol [Ultram] Med 01/12/19 14:06 Active 100 mg PO Q6H PRN DVT/VTE Prophylaxis Reflex [OM.PC] Routine Oth 01/12/19 14:06 Ordered Ice Therapy [OM.PC] PER UNIT ROUTINE Oth 01/12/19 14:06 Ordered Oral Care [OM.PC] BID Oth 01/12/19 14:06 Ordered Oral Care [OM.PC] BID Oth 01/12/19 14:06 Ordered Oral Care [OM.PC] BID Oth 01/12/19 14:06 Ordered Oral Care [OM.PC] BID Oth 01/12/19 15:45 Ordered Oral Care [OM.PC] BID Oth 01/13/19 15:45 Ordered Oral Care [OM.PC] BID Oth 01/14/19 15:45 Ordered Oral Care [OM.PC] BID Oth 01/15/19 15:45 Ordered Oral Care [OM.PC] BID Oth 01/16/19 15:45 Ordered Oral Care [OM.PC] BID Oth 01/17/19 15:45 Ordered Oral Care [OM.PC] BID Oth 01/18/19 15:45 Ordered Sequential Compression Device [OM.PC] Per Unit Routine Oth 01/12/19 14:06 Ordered Sequential Compression Device [OM.PC] Routine Ot 01/12/19 14:06 Ordered Weight bearing status [OM.PC] Routine Oth 01/12/19 14:06 Ordered Code Status [Resuscitation Status] Routine Resus Stat 01/12/19 14:08 Ordered Medication Orders Allopurinol (Zyloprim) 300 mg PO DAILY TIMO Aspirin (Ecotrin) 325 mg PO DAILY TIMO Bisacodyl (Dulcolax) 10 mg PO DAILY PRN PRN Reason: Constipation Diphenhydramine HCl (Benadryl) 25 mg IVPUSH Q4H PRN PRN Reason: Itching Docusate Sodium (Colace) 100 mg PO BID PRN PRN Reason: Constipation Gabapentin (Neurontin) 300 mg PO TID [facility] Last Admin: 01/12/19 14:35 Dose: 300 mg Hydrochlorothiazide (Hydrochlorothiazide) 25 mg PO DAILY TIMO Levothyroxine Sodium (Levothyroxine) 400 mcg PO 0600 [facility] Losartan Potassium (Cozaar) 100 mg PO DAILY TIMO Magnesium Hydroxide (Milk Of Magnesia) 30 ml PO BID PRN PRN Reason: Constipation Magnesium Oxide (Magnesium Oxide) 400 mg PO BEDTIME [facility] Oxycodone/Acetaminophen (Percocet 325-5 Mg) 2 tab PO Q6H [facility] Last Admin: 01/12/19 14:35 Dose: 2 tab Polyethylene Glycol (Miralax) 17 gm PO DAILY TIMO Senna (Senna) 8.6 mg PO BID PRN PRN Reason: Constipation Tramadol HCl (Ultram) 100 mg PO Q6H PRN PRN Reason: Pain (mild 1-3) Zolpidem Tartrate (Ambien) 5 mg PO BEDTIME PRN PRN Reason: Sleep Assessment/Plan Comment:: 1. Admit to swing bed for s/p left total knee revision, difficulty walking and weakness, continue PT/OT. 2. Constipation: add MiraLAX daily scheduled and Dulcolax, Docusate and Milk of Magnesia as needed. 3. Repeat labs tomorrow, WBC bumped today, received 3 doses of Ancef post operatively. 4. Hgb 9.9, continue to monitor and adjust treatments as needed. 5. History of nephrectomy, repeat chemistry tomorrow. 6. Continue home medications. 7. Insomnia/leg cramps: magnesium 400 mg at bedtime. 8. Continue pain management unchanged from acute stay. 9. Code status: FULL.
[2019-01-12] MEDS: Magnesium Oxide 400 MG Tab PO SCH (19:59)
[2019-01-13] MEDS: Acetaminophen/oxyCODONE 325-5 MG Tab PO SCH ×4 (01:50→20:07)
[2019-01-13] MEDS: traMADol 50 MG Tab PO PRN ×2 (05:29→12:01)
[2019-01-13] MEDS: Magnesium Hydroxide 400 MG/5 ML Susp 30 ML Cup PO PRN (05:30)
[2019-01-13] MEDS: Gabapentin 300 MG Cap PO SCH ×3 (08:49→21:44)
[2019-01-13] MEDS: Losartan 100 MG Tab PO SCH (08:50)
[2019-01-13] MEDS: Hydrochlorothiazide 25 MG Tab PO SCH (08:50)
[2019-01-13] MEDS: Polyethylene Glycol 3350 Powder 17 GM Packet PO SCH (08:53)
[2019-01-13] MEDS: Aspirin 325 MG Tab.EC PO SCH (08:53)
[2019-01-13] MEDS: Allopurinol 300 MG Tab PO SCH (08:55)
[2019-01-13] MEDS: Magnesium Oxide 400 MG Tab PO SCH (21:44)
[2019-01-14] MEDS: Acetaminophen/oxyCODONE 325-5 MG Tab PO SCH ×4 (02:36→20:30)
[2019-01-14] MEDS: traMADol 50 MG Tab PO PRN ×2 (06:25→15:52)
[2019-01-14] MEDS: Magnesium Hydroxide 400 MG/5 ML Susp 30 ML Cup PO PRN (07:57)
[2019-01-14] MEDS: Polyethylene Glycol 3350 Powder 17 GM Packet PO SCH (08:56)
[2019-01-14] MEDS: Losartan 100 MG Tab PO SCH (08:58)
[2019-01-14] MEDS: Hydrochlorothiazide 25 MG Tab PO SCH (08:59)
[2019-01-14] MEDS: Aspirin 325 MG Tab.EC PO SCH (09:00)
[2019-01-14] MEDS: Allopurinol 300 MG Tab PO SCH (09:00)
[2019-01-14] MEDS: Gabapentin 300 MG Cap PO SCH ×3 (09:04→20:29)
[2019-01-14] MEDS: Magnesium Oxide 400 MG Tab PO SCH (20:30)
[2019-01-15] MEDS: Acetaminophen/oxyCODONE 325-5 MG Tab PO SCH ×4 (02:35→19:57)
[2019-01-15] MEDS: Gabapentin 300 MG Cap PO SCH ×3 (08:13→20:02)
[2019-01-15] MEDS: Losartan 100 MG Tab PO SCH (08:15)
[2019-01-15] MEDS: Allopurinol 300 MG Tab PO SCH (08:15)
[2019-01-15] MEDS: Aspirin 325 MG Tab.EC PO SCH (08:16)
[2019-01-15] MEDS: Polyethylene Glycol 3350 Powder 17 GM Packet PO SCH (08:16)
[2019-01-15] MEDS: Hydrochlorothiazide 25 MG Tab PO SCH (08:16)
[2019-01-15] MEDS: traMADol 50 MG Tab PO PRN ×2 (12:46→19:11)
[2019-01-15] MEDS: Magnesium Oxide 400 MG Tab PO SCH (20:02)
[2019-01-16] MEDS: Acetaminophen/oxyCODONE 325-5 MG Tab PO SCH ×4 (02:58→20:03)
[2019-01-16] MEDS: traMADol 50 MG Tab PO PRN ×2 (07:01→12:58)
[2019-01-16] MEDS: Aspirin 325 MG Tab.EC PO SCH (08:31)
[2019-01-16] MEDS: Gabapentin 300 MG Cap PO SCH ×3 (08:31→21:17)
[2019-01-16] MEDS: Allopurinol 300 MG Tab PO SCH (08:31)
[2019-01-16] MEDS: Losartan 100 MG Tab PO SCH (08:32)
[2019-01-16] MEDS: Hydrochlorothiazide 25 MG Tab PO SCH (08:32)
[2019-01-16] MEDS: Polyethylene Glycol 3350 Powder 17 GM Packet PO SCH (08:33)
[2019-01-16] MEDS: Magnesium Oxide 400 MG Tab PO SCH (20:05)
[2019-01-17] MEDS: Acetaminophen/oxyCODONE 325-5 MG Tab PO SCH ×2 (02:11→08:12)
[2019-01-17] MEDS: traMADol 50 MG Tab PO PRN (06:00)
[2019-01-17] MEDS: Losartan 100 MG Tab PO SCH (08:17)
[2019-01-17] MEDS: Aspirin 325 MG Tab.EC PO SCH (08:24)
[2019-01-17] MEDS: Hydrochlorothiazide 25 MG Tab PO SCH (08:24)
[2019-01-17] MEDS: Gabapentin 300 MG Cap PO SCH ×3 (08:25→21:39)
[2019-01-17] MEDS: Polyethylene Glycol 3350 Powder 17 GM Packet PO SCH (08:25)
[2019-01-17] MEDS: Allopurinol 300 MG Tab PO SCH (08:25)
[2019-01-17] MEDS ORDERED: MEPERIDINE PO SCH (10:00)
[2019-01-17] MEDS: Magnesium Oxide 400 MG Tab PO SCH (21:38)
[2019-01-18] MEDS: traMADol 50 MG Tab PO PRN ×2 (03:59→12:15)
[2019-01-18] MEDS: Allopurinol 300 MG Tab PO SCH (08:16)
[2019-01-18] MEDS: Gabapentin 300 MG Cap PO SCH (08:16)
[2019-01-18] MEDS: Polyethylene Glycol 3350 Powder 17 GM Packet PO SCH (08:17)
[2019-01-18] MEDS: Hydrochlorothiazide 25 MG Tab PO SCH (08:17)
[2019-01-18] MEDS: Aspirin 325 MG Tab.EC PO SCH (08:17)
[2019-01-18] MEDS: Losartan 100 MG Tab PO SCH (08:18)
--- NOTE | 2019-01-19 03:53 | DISCH ---
DISCHARGE DATE: 01/18/2019 REASON FOR ADMISSION: Left total knee revision by Dr. Sy. DISCHARGE DIAGNOSIS: Left total knee revision by Dr. Sy. SECONDARY DIAGNOSES: Hypothyroidism, weakness, difficulty walking, constipation, postoperative anemia, hypertension, obesity, nocturnal leg cramps, status post nephrectomy. 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 She did well postoperatively with physical therapy and is ready to go home and continue with physical therapy. She used Percocet at the hospital but is going home on Demerol. Other new home medications include tramadol 50 mg t.i.d. p.r.n., only 10 tablets and gabapentin 300 mg p.o. t.i.d. She has an appointment with Dr. Sy on Wednesday next week. I spent more than 35 minutes in the discharge of the patient. /[id number] AMI/MARLO
== END 2019-01-18 12:20 | disposition home or self-care (01) | DRG 861 ==
LOC: FB.MS 13:15
PROVIDERS: ADMIT Family Medicine; ATTEND Family Medicine
DX: R53.1 Weakness (principal); R26.2 Difficulty in walking, not elsewhere classified; Z98.890 Other specified postprocedural states; Z96.652 Presence of left artificial knee joint; K59.00 Constipation, unspecified; H54.7 Unspecified visual loss; I10 Essential (primary) hypertension; M19.90 Unspecified osteoarthritis, unspecified site; M10.9 Gout, unspecified; E89.0 Postprocedural hypothyroidism; Z90.5 Acquired absence of kidney; Z92.3 Personal history of irradiation; D62 Acute posthemorrhagic anemia; G47.62 Sleep related leg cramps; Z79.82 Long term (current) use of aspirin; Z91.041 Radiographic dye allergy status; Z91.040 Latex allergy status
CPT/HCPCS: 36415; 80053; 85025; 94150; 97110-GO; 97110-GP; 97116-GP; 97530-GO; 97535-GO; A9270-GY

== ENCOUNTER 2019-04-25 07:25 | Day surgery (SDC) | payer BC ==
[2019-04-25] MEDS ORDERED: Labetalol 100 MG/20 ML MDV IV ONE (07:26)
[2019-04-25] MEDS ORDERED: Naloxone 0.4 MG/ML SDV IV ONE (07:26)
[2019-04-25] MEDS ORDERED: fentaNYL 100 MCG/2 ML SDV IV ONE (07:26)
[2019-04-25] MEDS ORDERED: Meperidine PF 100 MG/ML Syringe IV ONE (07:26)
[2019-04-25] MEDS ORDERED: Dexamethasone 4 MG/ML 5 ML MDV IVPUSH ONE (07:26)
[2019-04-25] MEDS ORDERED: ePHEDrine 50 MG/ML SDV IV ONE (07:26)
[2019-04-25] MEDS ORDERED: Lidocaine 2% 5 ML SDV INJECT ONE (07:26)
[2019-04-25] MEDS ORDERED: Propofol 200 MG/20 ML SDV IV ONE (07:26)
[2019-04-25] MEDS ORDERED: Ketorolac 30 MG/ML SDV IVPUSH ONE (07:26)
[2019-04-25] MEDS ORDERED: Levalbuterol HCl 1.25 MG/3 ML Neb INH ONE (07:26)
[2019-04-25] MEDS ORDERED: Midazolam 1 MG/ML 2 ML SDV IV ONE (07:26)
[2019-04-25] MEDS ORDERED: Ondansetron 4 MG/2 ML SDV IVPUSH ONE (07:26)
[2019-04-25] MEDS ORDERED: Sodium Chloride 0.9% 10 ML Syringe FLUSH PRN (07:30)
[2019-04-25] MEDS: Lactated Ringers 1,000 ML IV SCH ×2 (08:49→17:06)
[2019-04-25] MEDS ORDERED: Bupivacaine 0.5%/EPINEPHrine 1:200,000 50 ML MDV INJECT ONE (09:25)
[2019-04-25] MEDS ORDERED: Vancomycin 1 GM SDV ONE (09:28)
--- NOTE | 2019-04-25 10:15 | PCM.OPNOTE ---
- General Post-Op/Procedure Note Date of Surgery/Procedure: 04/25/19 Operative Procedure(s): left knee medial retinacular repair of arthrotomy Pre Op Diagnosis: left knee medial retinacular tear Post-Op Diagnosis: Same Anesthesia Technique: General ET Tube Primary Surgeon: Cuco Sy Field Naturalist: Haily Cannon EBL in mLs: 50 Drain/Tube Comments:: 20cm prevena wound vac Complications: None Condition: Good
[2019-04-25] MEDS ORDERED: Levalbuterol HCl 1.25 MG/3 ML Neb NEB PRN (10:54)
[2019-04-25] MEDS ORDERED: traMADol 50 MG Tab PO PRN (11:07)
[2019-04-25] MEDS ORDERED: Docusate Sodium 100 MG Cap PO PRN (11:07)
[2019-04-25] MEDS ORDERED: Morphine 2 MG/ML Syringe IVPUSH PRN (11:07)
[2019-04-25] MEDS ORDERED: Ondansetron 4 MG/2 ML SDV IVPUSH PRN (11:07)
[2019-04-25] MEDS ORDERED: Naloxone 0.4 MG/ML SDV IVPUSH PRN (11:07)
[2019-04-25] MEDS ORDERED: Zolpidem 5 MG Tab PO PRN (11:07)
--- NOTE | 2019-04-25 11:56 | OR ---
DATE OF OPERATION: 04/25/2019 SURGEON: Cuco Sy DO PREOPERATIVE DIAGNOSIS: Left knee medial retinacular tear. POSTOPERATIVE DIAGNOSIS: Left knee medial retinacular tear. PROCEDURE: Left knee arthrotomy and medial retinacular repair. AIR PRESS OPERATOR: Haily Cannon NP. Nurse practitioner, Haily Cannon NP, played an essential role in assisting in this case, helping to position the patient, retract structures as needed, as well as suturing and cutting sutures as indicated. Her presence improved patient's safety and decreased operative time. ANESTHESIA: General endotracheal intubation, Denny Muniz CRNA. FLUID: Lactated Ringer's solution. ESTIMATED BLOOD LOSS: 50 mL. COMPLICATIONS: None. SPECIMEN: None. DISCHARGE DISPOSITION: Stable to PACU. MATERIALS: Bard mesh 3 inches x 6 inches or 7.6 cm x 15 cm, lot [id number]. HISTORY AND INDICATIONS FOR THE PROCEDURE: The patient is well known to me. She had undergone a revision hinged knee arthroplasty. Unfortunately, she had a fall, and I believe that she tore her medial retinaculum at that time. Her patella was subluxed in. The risks and benefits of the procedure were explained to the patient. Informed consent was obtained. DETAILS OF THE PROCEDURE: The patient was seen preoperatively by myself and anesthesia staff in preop holding area where the op site was marked. She was brought to the operative suite by the anesthesia staff where general anesthesia was administered. A well-padded tourniquet was placed on the left thigh. The left lower extremity was prepped and draped in a sterile manner. A bump was placed under the left hip. All extremities were found to be well padded. A time-out was called identifying the correct patient, correct procedure, the correct site and the antibiotics had been begun within the appropriate period of time. The left lower extremity was exsanguinated. Tourniquet was raised to 300 mmHg and taken down at 44 minutes. An incision was made through the previous incision. A plane was developed over the fascia. I could see that the joint was not exposed. However, the medial retinaculum had torn apart and sutures were significantly medially displaced at the 9 o'clock to 11 o'clock position from the patella. I then did a standard parapatellar arthrotomy and then removed some of the extra tissue where the tear had occurred. I then oversewed this area and made sure I could get it back to the patella with #5 Ethibond. I then put in multiple [id number] as well as tension sutures across the arthrotomy. At one point, I tested and the sutures broke, so I reinforced them even more and then I did a running 4 interlocking suture down the entire length of the arthrotomy with #5 Ethibond. I then ranged the knee and this provided no subluxation of the patella with no tearing of my sutures. Because of the patient's body habitus and previous complications, I did apply a Bard mesh and then oversewed this with 4 #5 Ethibond sutures across the arthrotomy site even wider than the previous one to provide extra reinforcement. Please note, that I did place 0.5 g of vancomycin inside the joint after copiously washing it with pulse lavage with sterile saline. I then irrigated again over the fascia, applied a small amount of Betadine and then immediately washed that off as the patient had a contrast allergy, but not a contact allergy. I then placed the other 0.5 g of vancomycin subcutaneously and then closed with #1 Stratafix and skin kami. We then placed a 20 cm Prevena wound VAC, which was an incisional VAC over the site. It reached full suction and was normal. The tourniquet was let down 44 minutes prior to placing the wound VAC. The patient was then allowed to awaken from general anesthesia and taken to the PACU in stable condition. /[id number] KWAME/MARLO
[2019-04-25] MEDS: Famotidine 20 MG Tab PO SCH ×2 (13:48→20:01)
[2019-04-25] MEDS: Gabapentin 300 MG Cap PO SCH ×2 (15:07→20:01)
[2019-04-25] MEDS: Acetaminophen/oxyCODONE 325-5 MG Tab PO PRN ×2 (15:07→20:01)
[2019-04-26] MEDS: Acetaminophen/oxyCODONE 325-5 MG Tab PO PRN ×3 (00:03→11:14)
[2019-04-26] MEDS: Lactated Ringers 1,000 ML IV SCH (00:14)
[2019-04-26] MEDS: Famotidine 20 MG Tab PO SCH (08:48)
[2019-04-26] MEDS: Gabapentin 300 MG Cap PO SCH (08:53)
[2019-04-26] MEDS ORDERED: Allopurinol 300 MG Tab PO SCH (09:00)
[2019-04-26] MEDS ORDERED: Losartan 100 MG Tab PO SCH (09:00)
[2019-04-26] MEDS ORDERED: Aspirin 325 MG Tab.EC PO SCH (09:00)
[2019-04-26] MEDS ORDERED: Hydrochlorothiazide 25 MG Tab PO SCH (09:00)
--- NOTE | 2019-04-26 09:09 | PCM.DCSUM1 ---
Discharge Summary - Hospital Course HPI Initial Comments: 63 yo female s/p hinged tka with medial retinacular tear Diagnosis: Stroke: No - Discharge Data Discharge Date: 04/26/19 Discharge Disposition: Home, Self-Care 01 Condition: Good - Referral to Home Health Primary Care Physician: Kemi Husain NP - Patient Summary/Data Operative Procedure(s) Performed: left knee medial retinacular repair of arthrotomy Complications: none Consults: Consultations 04/25/19 11:07 Respiratory Care Assess and Treatment [CONS] Routine Comment: Physician Instructions: Post-Op Pneumonia Prevention 04/25/19 15:00 OT Evaluation and Treatment [CONS] Routine Please Evaluate and Treat. OT Reason for Consult: Strengthening This query below is only for informational purposes and is not editable. Admission Diagnosis/Problem: Knee pain PT Evaluation and Treatment [CONS] Routine Please Evaluate and Treat. PT Reason for Consult: Strengthening This query below is only for informational purposes and is not editable. Admission Diagnosis/Problem: Knee pain - Patient Instructions Diet: Usual Diet as Tolerated Activity: Apply Ice, As Tolerated, Full Weight Bearing, No Strenuous Activities Driving: Do Not Drive Showering/Bathing: May Shower Wound/Incision Care: Keep Operative Site/Wound Site Clean and Dry Wound/Incision, Other: after wound vac shuts off replace with clean dry dressing daily Notify Provider of: Fever, Increased Pain, Swelling and Redness, Drainage, Nausea and/or Vomiting - Discharge Plan *PRESCRIPTION DRUG MONITORING PROGRAM REVIEWED*: Yes *COPY OF PRESCRIPTION DRUG MONITORING REPORT IN PATIENT ARVIND: No Prescriptions/Med Rec: Acetaminophen/oxyCODONE [Percocet 325-5 MG] 1 tab PO Q6HR #28 tablet Aspirin [Ecotrin EC] 325 mg PO DAILY #21 tab.ec Home Medications: Home Meds Acetaminophen [Tylenol Extra Strength] 1,000 mg PO BID 11/23/18 [History] Allopurinol [Zyloprim] 300 mg PO DAILY 11/23/18 [History] Fish Oil/[place]-3 Fatty Acids [Fish Oil 1,000 MG] 1 cap PO DAILY 11/23/18 [ History] Losartan/Hydrochlorothiazide [Losartan-HCTZ 100-25 MG] 1 tab PO DAILY 11/23/18 [ History] Magnesium Oxide [Magnesium] 500 mg PO BEDTIME 11/23/18 [History] Levothyroxine 400 mcg PO 0600 11/24/18 [History] Turmeric Root Extract [Turmeric] 500 mg PO DAILY 11/24/18 [History] Aspirin [Ecotrin EC] 325 mg PO DAILY #21 tab.ec 11/25/18 [Rx] Cholecalciferol (Vitamin D3) [Vitamin D3] 1,000 units PO DAILY 01/04/19 [History ] Gabapentin [Neurontin] 300 mg PO TID #30 cap 01/18/19 [Rx] Meperidine [Meperitab] 50 mg PO QID #30 tablet 01/18/19 [Rx] Diclofenac Sodium 4 gm TOP QID 04/24/19 [History] hydrOXYzine pamoate [Hydroxyzine Pamoate] 25 mg PO BEDTIME PRN 04/24/19 [History ] Acetaminophen/oxyCODONE [Percocet 325-5 MG] 1 tab PO Q6HR #28 tablet 04/26/19 [ Rx] Aspirin [Ecotrin EC] 325 mg PO DAILY #21 tab.ec 04/26/19 [Rx] Patient Handouts: Fall Prevention in Hospitals, Adult, Healthcare-Associated Pneumonia, Venous Thromboembolism Prevention - Discharge Summary/Plan Comment DC Time >30 min.: No - General Info Date of Service: 04/26/19 Functional Status: Reports: Pain Controlled, Tolerating Diet, Ambulating, Urinating - Review of Systems General: Reports: No Symptoms HEENT: Reports: No Symptoms Pulmonary: Reports: No Symptoms Cardiovascular: Reports: No Symptoms Gastrointestinal: Reports: No Symptoms Genitourinary: Reports: No Symptoms Musculoskeletal: Reports: Leg Pain, Joint Pain, Joint Swelling Skin: Reports: No Symptoms Neurological: Reports: No Symptoms Psychiatric: Reports: No Symptoms - Patient Data Vitals - Most Recent: Last Vital Signs Temp 98.0 F 04/26/19 00:10 Pulse 73 04/26/19 00:10 Resp 18 04/26/19 00:10 BP 108/55 L 04/26/19 08:47 Pulse Ox 95 04/26/19 00:10 Weight - Most Recent: 307 lb I&O - Last 24 hours: Intake & Output 04/25/19 04/26/19 04/26/19 22:59 06:59 14:59 Intake Total 1306 1083 Balance 1306 1083 Med Orders - Current: Current Medications Allopurinol (Zyloprim) 300 mg PO DAILY [facility] Last Admin: 04/26/19 08:48 Dose: 300 mg Aspirin (Ecotrin) 325 mg PO DAILY [facility] Last Admin: 04/26/19 08:48 Dose: 325 mg Docusate Sodium (Colace) 100 mg PO BID PRN PRN Reason: Constipation Famotidine (Pepcid) 20 mg PO BID [facility] Last Admin: 04/26/19 08:48 Dose: 20 mg Gabapentin (Neurontin) 300 mg PO TID [facility] Last Admin: 04/26/19 08:53 Dose: 300 mg Hydrochlorothiazide (Hydrochlorothiazide) 25 mg PO DAILY [facility] Last Admin: 04/26/19 08:47 Dose: 25 mg Lactated Ringer's (Ringers, Lactated) 1,000 mls @ 125 mls/hr IV ASDIRECTED [facility] Last Admin: 04/26/19 00:14 Dose: 125 mls/hr Levalbuterol HCl (Xopenex) 1.25 mg NEB Q4H PRN PRN Reason: Dyspnea Levothyroxine Sodium (Levothyroxine) 400 mcg PO 0600 [facility] Last Admin: 04/26/19 05:29 Dose: 400 mcg Losartan Potassium (Cozaar) 100 mg PO DAILY [facility] Last Admin: 04/26/19 08:47 Dose: 100 mg Morphine Sulfate (Morphine) 2 mg IVPUSH Q2H PRN PRN Reason: Pain Naloxone HCl (Narcan) 0.1 mg IVPUSH ONETIME PRN PRN Reason: Respiratory Depression Ondansetron HCl (Zofran) 4 mg IVPUSH Q6H PRN PRN Reason: Nausea/Vomiting Oxycodone/Acetaminophen (Percocet 325-5 Mg) 2 tab PO Q4H PRN PRN Reason: Pain Last Admin: 04/26/19 05:24 Dose: 2 tab Sodium Chloride (Saline Flush) 10 ml FLUSH ASDIRECTED PRN PRN Reason: Keep Vein Open Tramadol HCl (Ultram) 100 mg PO Q4H PRN PRN Reason: Pain Zolpidem Tartrate (Ambien) 5 mg PO BEDTIME PRN PRN Reason: Insomnia Discontinued Medications Bupivacaine HCl/Epinephrine Bitart (Marcaine 0.5%/Epinephrine 1:200,000) 20 ml INJECT .STK-MED ONE Stop: 04/25/19 09:26 Last Admin: 04/25/19 09:25 Dose: 20 ml Cefazolin Sodium 3 gm/ Sodium (Chloride) 100 mls @ 200 mls/hr IV ONETIME ONE Stop: 04/25/19 08:29 Last Admin: 04/25/19 08:50 Dose: 200 mls/hr Cefazolin Sodium 3 gm/ Sodium (Chloride) 100 mls @ 200 mls/hr IV Q8H [facility] Stop: 04/26/19 01:29 Last Admin: 04/26/19 00:14 Dose: 200 mls/hr Vancomycin HCl (Vancomycin) 1 gm .XX .STK-MED ONE Stop: 04/25/19 09:29 Last Admin: 04/25/19 09:28 Dose: 1 gm - Exam General: Reports: Alert, Oriented, Cooperative, No Acute Distress HEENT: Reports: Pupils Equal, Pupils Reactive, EOMI, Mucous Membr. Moist/[place] Neck: Reports: Supple, Trachea Midline Lungs: Reports: Normal Respiratory Effort GI/Abdominal Exam: No Distention Extremities: Leg Pain, Limited Range of Motion Skin: Reports: Warm, Dry, Intact Wound/Incisions: Reports: Healing Well, Dressing Dry and Intact, No Drainage Neurological: Reports: No New Focal Deficit Discharge Operative/Procedures - Procedures Performed Operations: left knee medial retinacular repair LP Indication: CSF analysis Arterial Line Indication: hemodynamic monitoring Chest Tube Indication: pneumothorax Thoracentesis Indication: pleural effusion Paracentesis Indication: ascites
== END 2019-04-26 13:40 | disposition home or self-care (01) ==
LOC: FB.SDS 07:25 → FB.MS 11:05 → FB.SDS 04-26 13:40
PROVIDERS: ATTEND Orthopaedic Surgery
DX: S86.812A Strain of other muscle(s) and tendon(s) at lower leg level, left leg, initial encounter (principal); M17.10 Unilateral primary osteoarthritis, unspecified knee; M10.9 Gout, unspecified; I10 Essential (primary) hypertension; E03.9 Hypothyroidism, unspecified; J45.909 Unspecified asthma, uncomplicated; Z91.041 Radiographic dye allergy status; Z91.040 Latex allergy status; Z79.82 Long term (current) use of aspirin; Z79.899 Other long term (current) drug therapy
CPT/HCPCS: 36415; 85025; 94150; 97161-GP; A9270-GY; C1781; J0690; J1100; J1885; J2001; J2175; J2250; J2310; J2405; J2704; J3010; J3370; J3490; J7030; J7120; J7612-GY